=== PATIENT | male | born 1950 | race Caucasian/White ===

== ENCOUNTER 2017-04-25 18:25 | Inpatient (IN) | payer MEDICARE ==
[~2017-04-25] VITALS: Ht 167.6 cm; Wt 80.5 kg
[~2017-04-25 18:25] MED LIST: OXYC-360 PO
[2017-04-25 18:27] VITALS: BP 149/90; PULSE 76; RESP 24; TEMP 99.5; O2SAT 92
[2017-04-25 18:57] VITALS: BP 147/75; PULSE 76; RESP 19; O2SAT 97
[2017-04-25] MEDS ORDERED: SODIUM CHLOR 0.9% 1000 ML INJ 1,000 ML IV ONE (19:04)
[2017-04-25 19:09] VITALS: BP 152/67; PULSE 55; RESP 18; O2SAT 96
[2017-04-25] MEDS ORDERED: SODIUM CHLORIDE 0.9% FLUSH 10 ML FLUSH IVF PRN (19:15)
--- NOTE | 2017-04-25 19:47 | PD ---
Data Data Last Documented VS Vital Signs Date Time Temp Pulse Resp B/P (MAP) Pulse Ox O2 Delivery O2 Flow Rate FiO2 04/25/17 19:09 55 18 152/67 (95) 96 Nasal Cannula 2.00 04/25/17 18:27 99.5 Orders Orders Electrocardiogram (04/25/17 19:04) Complete Blood Count With Diff (04/25/17 19:04) Comprehensive Metabolic Panel (04/25/17 19:04) Magnesium (Mg) (04/25/17 19:04) B-Type Natriuretic Peptide (04/25/17 19:04) Ckmb (Isoenzyme) Profile (04/25/17 19:04) Troponin I (04/25/17 19:04) Act Partial Throm Time (Ptt) (04/25/17 19:04) Prothrombin Time / Inr (Pt) (04/25/17 19:04) Urinalysis - C+S If Indicated (04/25/17 19:04) Chest, Single Ap (04/25/17 19:04) Ct Brain W/O Iv Contrast(Rout) (04/25/17 19:04) Ecg Monitoring (04/25/17 19:04) Iv Access Insert/Monitor (04/25/17 19:04) Oximetry (04/25/17 19:04) Sodium Chloride 0.9% Flush (Ns Flush) (04/25/17 19:15) Sodium Chlor 0.9% 1000 Ml Inj (Ns 1000 M (04/25/17 19:04) Blood Culture (04/25/17 19:04) Lactic Acid (04/25/17 19:04) Mri Brain W/O Contrast (04/25/17 ) Mra Carotids W/O Contrast (04/25/17 ) CKMB (04/25/17 19:35) CKMB% (04/25/17 19:35) Ammonia (04/25/17 21:48) Enoxaparin Inj (Lovenox Inj) (04/25/17 22:30) Admit Order (Ed Use Only) (04/25/17 22:31) Labs Laboratory Tests Test 04/25/17 19:35 04/25/17 21:50 White Blood Count 13.2 TH/MM3 Red Blood Count 4.91 MIL/MM3 Hemoglobin 15.0 GM/DL Hematocrit 45.9 % Mean Corpuscular Volume 93.6 FL Mean Corpuscular Hemoglobin 30.6 PG Mean Corpuscular Hemoglobin Concent 32.7 % Red Cell Distribution Width 17.0 % Platelet Count 256 TH/MM3 Mean Platelet Volume 7.7 FL Neutrophils (%) (Auto) 65.2 % Lymphocytes (%) (Auto) 16.2 % Monocytes (%) (Auto) 15.4 % Eosinophils (%) (Auto) 2.1 % Basophils (%) (Auto) 1.1 % Neutrophils # (Auto) 8.6 TH/MM3 Lymphocytes # (Auto) 2.1 TH/MM3 Monocytes # (Auto) 2.0 TH/MM3 Eosinophils # (Auto) 0.3 TH/MM3 Basophils # (Auto) 0.1 TH/MM3 CBC Comment DIFF FINAL Differential Comment Prothrombin Time 10.7 SEC Prothromb Time International Ratio 1.0 RATIO Activated Partial Thromboplast Time 29.4 SEC Blood Urea Nitrogen 61 MG/DL Creatinine 3.59 MG/DL Random Glucose 83 MG/DL Total Protein 7.6 GM/DL Albumin 3.4 GM/DL Calcium Level 8.3 MG/DL Magnesium Level 2.9 MG/DL Alkaline Phosphatase 93 U/L Aspartate Amino Transf (AST/SGOT) 84 U/L Alanine Aminotransferase (ALT/SGPT) 36 U/L Total Bilirubin 0.6 MG/DL Sodium Level 136 MEQ/L Potassium Level 4.5 MEQ/L Chloride Level 103 MEQ/L Carbon Dioxide Level 25.0 MEQ/L Anion Gap 8 MEQ/L Estimat Glomerular Filtration Rate 17 ML/MIN Lactic Acid Level 1.3 mmol/L Total Creatine Kinase 2346 U/L Creatine Kinase MB 70.8 NG/ML Creatine Kinase MB % 3.0 % Troponin I 6.63 NG/ML B-Type Natriuretic Peptide 178 PG/ML Ammonia 54 MCMOL/L [facility] Supervised Visit with JANE: Yes Narrative Course Last [address] 04/25/171903 Signed Impressions: Service Date/Time: April 20:43 - CONCLUSION: No acute intracranial abnormality. Mild sinus disease. Cisco Kimball MD Chest X-Ray 04/25/171903 Signed Impressions: Service Date/Time: April 20:16 - CONCLUSION: No evidence of acute cardiopulmonary disease. Cisco Kimball MD Neck Magnetic Resonance Angiography 04/25/17 0000 Signed Impressions: Service Date/Time: April 22:02 - CONCLUSION: 1. Very limited noncontrast exam of the cervical vessels with step off artifact. 2. The arch vessels are incompletely evaluated. Possible ostial stenosis of the right internal with a mild long segment stenosis of the left internal. 3. Patient is left vertebral dominant. Proximal vertebral arteries are not evaluated. Oj Cortes MD Brain MRI 04/25/17 0000 Signed Impressions: Service Date/Time: April 22:02 - CONCLUSION: 1. No bleed, infarct or other acute intracranial abnormality. 2. Very mild chronic white matter changes. 3. Disconjugate gaze. Cisco Kimball MD I, Dr. Low, have reviewed the advance practice practitioner's documentation and am in agreement, met with the patient face to face, made the diagnosis, and the medical decision making was done by me. *My assessment and Findings: Patient seen and examined by me in addition to Keny Feliciano PA-C, this is a 66-year-old male with a history of chronic kidney disease presents emergency department for evaluation of altered mental status, tremors particularly in the right upper and right lower extremity. Patient is also having some slurred speech. Family is concerned is been having stroke. Symptoms for 48 hours prior to presentation. Initial workup including CAT scan of the head was negative. The patient does have acute kidney injury with uremia and elevated troponin no chest pain his EKG was reviewed by me and is nonischemic.. The patient was discussed with Dr. Lopez by Dia Feliciano who thinks that the symptoms likely are more from uremic encephalopathy. MRI is ordered and pending. Patient was discussed with Dr. Stewart for admission. We discussed with Dr. Lopez, possible indications for heparinization but he would like to get MRI first. Heparinization was discussed with Dr. Stewart who would like to give low-dose Lovenox instead. This is deferred to him. Diagnosis Primary Impression: Troponin level elevated Additional Impressions: Tremor of hands and face Hypertension Qualified Codes: I10 - Essential (primary) hypertension Hyperlipidemia Qualified Codes: E78.00 - Pure hypercholesterolemia, unspecified Acute kidney injury superimposed on CKD Admitting Information Admitting Physician Requests: Admit Condition: Luis Ashby MD Apr 25, 2017 19:47
[2017-04-25 19:55] LABS: AUTOMATED NEUTROPHIL # 8.6 TH/MM3 (1.8-7.7); BASOPHIL # 0.1 TH/MM3 (0-0.2); BASOPHIL % 1.1 % (0.0-2.0); EOSINOPHIL # 0.3 TH/MM3 (0-0.4); EOSINOPHIL % 2.1 % (0.0-4.0); HEMATOCRIT 45.9 % (39.0-51.0); HEMO FLAGS DIFF FINAL; LYMPH % 16.2 % (9.0-44.0); LYMPHOCYTE # 2.1 TH/MM3 (1.0-4.8); MEAN CELL VOLUME 93.6 FL (80.0-100.0); MEAN CORPUSCULAR HEMOGLOBIN 30.6 PG (27.0-34.0); MEAN CORPUSCULAR HGB CONC 32.7 % (32.0-36.0); MONO % 15.4 % (0.0-8.0); NEUT % 65.2 % (16.0-70.0); PLATELET COUNT 256 TH/MM3 (150-450); RED BLOOD COUNT 4.91 MIL/MM3 (4.50-5.90); WHITE BLOOD COUNT 13.2 TH/MM3 (4.0-11.0)
[2017-04-25 20:07] LABS: APTT (PATIENT) 29.4 SEC (24.3-30.1); PROTHROMBIN TIME - PATIENT 10.7 SEC (9.8-11.6)
--- NOTE | 2017-04-25 20:07 | PD ---
HPI Chief Complaint: Neuro Symptoms/ Deficits Time Seen by Provider: 19:10 Travel History International Travel<30 days: No Contact w/Intl Traveler<30days: No Traveled to known affect area: No History of Present Illness HPI 66 YO M with PMH of HTN, hypertriglyceridemia, GERD, hep C, chronic back pain presents to the ED for evaluation of 2 day history of tremor, malaise. The patient is somnolent but he arouses easily and answers questions appropriately. He is oriented to person, place, time, situation. He reports feeling tired and weak but denies headache, dizziness, chest pain, palpitations, shortness of breath, abdominal pain, nausea, vomiting. Patients family is at bedside and helps to provide the history. They state that the patient has been tremulous for approximately 48 hours. This originated in the right arm and then progressed to all the extremities bilaterally. Patient's daughter states that he was tremulous but otherwise fine around lunchtime today. Patients family member reports that the patient has been drowsy for approximately 3 hours. Last pain medications taken around 4pm. Patient is followed by Dr. Schrader. [facility] Past Medical History High Cholesterol: Yes GERD: Yes Hepatitis: Yes (HEP C) Hypertension: Yes Triglycerides - High: Yes Tetanus Vaccination: Unknown Influenza Vaccination: No Past Surgical History Tonsillectomy: Yes Social History Alcohol Use: No Tobacco Use: Yes (1/2 PPD) Substance Use: No Allergies-Medications (Allergen,Severity, Reaction): Coded Allergies: No Known Allergies (Unverified , 07/15/13) Reported Meds & Prescriptions Reported Meds & Active Scripts Active Reported Ranitidine (Ranitidine HCl) 150 Mg Tab 150 Mg PO BID Gemfibrozil 600 Mg Tab 600 Mg PO BIDAC Take 30 minutes prior to breakfast and dinner. Alendronate (Alendronate Sodium) 35 Mg Tab 35 Mg PO Q7D Vitamin B12 (Cyanocobalamin) 500 Mcg Tab 500 Mcg PO DAILY [magnesium + zinc] 1 Tab PO BID Atorvastatin (Atorvastatin Calcium) 40 Mg Tab 40 Mg PO HS [fish oil] 4,800 Mg PO DAILY Vitamin D3 (Cholecalciferol) 400 Unit Tab 200 Units PO DAILY Morphine Liq (Morphine Sulfate) 10 Mg/5 Ml Liq 0.1 Mg PO DAILY Enalapril (Enalapril Maleate) 20 Mg Tab 20 Mg PO DAILY Hydrochlorothiazide 25 Mg Tab 25 Mg PO DAILY Aspirin 81 Mg Chew 81 Mg CHEW DAILY Allopurinol 300 Mg Tab 300 Mg PO DAILY Metoprolol Tartrate 50 Mg Tab 50 Mg PO BID Review of Systems Except as stated in HPI: all other systems reviewed are Neg Physical Exam Narrative GENERAL: Well-nourished, well-developed white male, somnolent, arouses easily. SKIN: Focused skin assessment warm/dry. HEAD: Normocephalic. EYES: No scleral icterus. No injection or drainage. Mucous-like discharge from the bilateral eyes. NECK: Supple, trachea midline. No JVD or lymphadenopathy. CARDIOVASCULAR: Regular rate and rhythm without murmurs, gallops, or rubs. RESPIRATORY: Breath sounds clear and equal bilaterally. No accessory muscle use. GASTROINTESTINAL: Abdomen soft, non-tender, nondistended. Active bowel sounds. MUSCULOSKELETAL: No cyanosis, or edema. Chronic skin changes in the bilateral lower extremities. The patient has 2 skin tears on the anterior aspect of the left rider. There is 1+ edema bilaterally but no warmth or drainage is noted. NEUROLOGICAL: Awake and alert. Cranial nerves II through XII intact. Motor and sensory grossly within normal limits. Equal triple valve mechanic strength bilaterally. 4/5 5 muscle strength in all muscle groups of the lower extremities bilaterally. Normal speech. BACK: Nontender without obvious deformity. No CVA tenderness. Data Data Last Documented VS Vital Signs Date Time Temp Pulse Resp B/P (MAP) Pulse Ox O2 Delivery O2 Flow Rate FiO2 04/25/17 19:09 55 18 152/67 (95) 96 Nasal Cannula 2.00 04/25/17 18:27 99.5 Orders Orders Electrocardiogram (04/25/17 19:04) Complete Blood Count With Diff (04/25/17 19:04) Comprehensive Metabolic Panel (04/25/17 19:04) Magnesium (Mg) (04/25/17 19:04) B-Type Natriuretic Peptide (04/25/17 19:04) Ckmb (Isoenzyme) Profile (04/25/17 19:04) Troponin I (04/25/17 19:04) Act Partial Throm Time (Ptt) (04/25/17 19:04) Prothrombin Time / Inr (Pt) (04/25/17 19:04) Urinalysis - C+S If Indicated (04/25/17 19:04) Chest, Single Ap (04/25/17 19:04) Ct Brain W/O Iv Contrast(Rout) (04/25/17 19:04) Ecg Monitoring (04/25/17 19:04) Iv Access Insert/Monitor (04/25/17 19:04) Oximetry (04/25/17 19:04) Sodium Chloride 0.9% Flush (Ns Flush) (04/25/17 19:15) Sodium Chlor 0.9% 1000 Ml Inj (Ns 1000 M (04/25/17 19:04) Blood Culture (04/25/17 19:04) Lactic Acid (04/25/17 19:04) Mri Brain W/O Contrast (04/25/17 ) Mra Carotids W/O Contrast (04/25/17 ) CKMB (04/25/17 19:35) CKMB% (04/25/17 19:35) Ammonia (04/25/17 21:48) Enoxaparin Inj (Lovenox Inj) (04/25/17 22:30) Admit Order (Ed Use Only) (04/25/17 22:31) Labs Laboratory Tests Test 04/25/17 19:35 04/25/17 21:50 White Blood Count 13.2 TH/MM3 Red Blood Count 4.91 MIL/MM3 Hemoglobin 15.0 GM/DL Hematocrit 45.9 % Mean Corpuscular Volume 93.6 FL Mean Corpuscular Hemoglobin 30.6 PG Mean Corpuscular Hemoglobin Concent 32.7 % Red Cell Distribution Width 17.0 % Platelet Count 256 TH/MM3 Mean Platelet Volume 7.7 FL Neutrophils (%) (Auto) 65.2 % Lymphocytes (%) (Auto) 16.2 % Monocytes (%) (Auto) 15.4 % Eosinophils (%) (Auto) 2.1 % Basophils (%) (Auto) 1.1 % Neutrophils # (Auto) 8.6 TH/MM3 Lymphocytes # (Auto) 2.1 TH/MM3 Monocytes # (Auto) 2.0 TH/MM3 Eosinophils # (Auto) 0.3 TH/MM3 Basophils # (Auto) 0.1 TH/MM3 CBC Comment DIFF FINAL Differential Comment Prothrombin Time 10.7 SEC Prothromb Time International Ratio 1.0 RATIO Activated Partial Thromboplast Time 29.4 SEC Blood Urea Nitrogen 61 MG/DL Creatinine 3.59 MG/DL Random Glucose 83 MG/DL Total Protein 7.6 GM/DL Albumin 3.4 GM/DL Calcium Level 8.3 MG/DL Magnesium Level 2.9 MG/DL Alkaline Phosphatase 93 U/L Aspartate Amino Transf (AST/SGOT) 84 U/L Alanine Aminotransferase (ALT/SGPT) 36 U/L Total Bilirubin 0.6 MG/DL Sodium Level 136 MEQ/L Potassium Level 4.5 MEQ/L Chloride Level 103 MEQ/L Carbon Dioxide Level 25.0 MEQ/L Anion Gap 8 MEQ/L Estimat Glomerular Filtration Rate 17 ML/MIN Lactic Acid Level 1.3 mmol/L Total Creatine Kinase 2346 U/L Creatine Kinase MB 70.8 NG/ML Creatine Kinase MB % 3.0 % Troponin I 6.63 NG/ML B-Type Natriuretic Peptide 178 PG/ML Ammonia 54 MCMOL/L [facility] Medical Decision Making Medical Screen Exam Complete: Yes Emergency Medical Condition: Yes Differential Diagnosis CVA versus PNA versus cellulitis versus UTI versus metabolic derangement versus Narrative Course 66 YO M with PMH of HTN, hypertriglyceridemia, GERD, hep C, chronic back pain presents to the ED for evaluation of 2 day history of tremor, malaise. He reports feeling tired and weak but denies headache, dizziness, chest pain, palpitations, shortness of breath, abdominal pain, nausea, vomiting. Patients family is at bedside and helps to provide the history. They state that the patient has been tremulous for approximately 48 hours. This originated in the right arm and then progressed to all the extremities bilaterally. Patient's daughter states that he was tremulous but otherwise fine around lunchtime today. She reports that the patient has been drowsy for approximately 3 hours. Last pain medications taken around 4pm. Patient is followed by Dr. Schrader. Temp 99.5, O2 saturations 96-97% on 2L NC on presentation. The patient is somnolent but he arouses easily and answers questions appropriately. He is oriented to person, place, time, situation. No focal neuro deficits. No appreciable M/R/G. Abdomen protuberant, soft, nontender. He does have chronic skin changes in the bilateral lower extremities as well as 2 large skin tears on the anterior aspect the left leg. No signs of infection. CBC: WBC 13.2. Hemoglobin 15.0. Coags: INR 1.0 CBC: BUN 61, creatinine 3.59. Calcium 8.3. Magnesium 2.9 Lactic acid 1.3. EKG: No acute ST changes noted. Troponin 6.63. CK 2346 CXR: No evidence of cardiopulmonary disease. I discussed the case with Dr. Low. Some concern for stroke so we will go ahead with imaging sans contrast, pending at this time. Consult place with Dr. Shea. I spoke with Dr. Stewart who agrees to accept the patient to the medicine service. The EKG is unimpressive for ACS, cardiac enzymes likely elevated secondary to acute renal failure. Dr. Stewart will monitor and consult cardiology as needed. Please see medicine notes for disposition. Dia Feliciano Apr 25, 2017 20:07
[2017-04-25] MEDS ORDERED: fish oil PO (20:26)
[2017-04-25] MEDS ORDERED: HYDR25TA5 PO (20:26)
[2017-04-25] MEDS ORDERED: ENAL20TA PO (20:26)
[2017-04-25] MEDS ORDERED: ASPI81CH CHEW (20:26)
[2017-04-25] MEDS ORDERED: METO50TA PO (20:26)
[2017-04-25] MEDS ORDERED: MORP1SOL3 PO (20:26)
[2017-04-25] MEDS ORDERED: ALLO300T2 PO (20:26)
[2017-04-25] MEDS ORDERED: VITD400 PO (20:26)
[2017-04-25 20:27] LABS: ANION GAP 8 MEQ/L (5-15); AST (GOT) 84 U/L (15-37); BLOOD UREA NITROGEN 61 MG/DL (7-18); CHLORIDE 103 MEQ/L (98-107); GLOMERULAR FILTRATION RATE 17 ML/MIN (>89); MAGNESIUM 2.9 MG/DL (1.5-2.5); POTASSIUM 4.5 MEQ/L (3.5-5.1); SODIUM (NA) 136 MEQ/L (136-145)
[2017-04-25] MEDS ORDERED: RANI150T PO (20:29)
[2017-04-25] MEDS ORDERED: ZINC PO (20:29)
[2017-04-25] MEDS ORDERED: GEMF600T PO (20:29)
[2017-04-25] MEDS ORDERED: ATOR40TA16 PO (20:29)
[2017-04-25] MEDS ORDERED: VITA500T49 PO (20:29)
[2017-04-25] MEDS ORDERED: MAGNESIUM PO (20:29)
[2017-04-25] MEDS ORDERED: ALEN35TA24 PO (20:29)
--- NOTE | 2017-04-25 20:42 | RADRPT ---
EXAM DATE/TIME: 04/25/2017 20:16 [facility] COMPARISON: No previous studies available for comparison. INDICATIONS : General weakness. MEDICAL HISTORY : Hypertension. SURGICAL HISTORY : None. ENCOUNTER: Initial ACUITY: 3 days PAIN SCORE: 0/10 LOCATION: Bilateral chest FINDINGS: A single view of the chest demonstrates the lungs to be symmetrically aerated without evidence of mas s, infiltrate or effusion. The cardiomediastinal contours are unremarkable. Osseous structures are intact. CONCLUSION: No evidence of acute cardiopulmonary disease. Cisco Kimball MD on April 25, 2017 at 20:40 Board Certified Radiologist. This report was verified electronically.
[2017-04-25 20:43] LABS: ALKALINE PHOSPHATASE 93 U/L (45-117); ALT (GPT) 36 U/L (12-78); CREATINE KINASE 2346 U/L (39-308); TOTAL BILIRUBIN ADULT 0.6 MG/DL (0.2-1.0)
[2017-04-25 20:57] LABS: CKMB 70.8 NG/ML (0.5-3.6)
--- NOTE | 2017-04-25 21:25 | RADRPT ---
EXAM DATE/TIME: 04/25/2017 20:43 [facility] COMPARISON: No previous studies available for comparison. INDICATIONS : Tremors, dizziness. RADIATION DOSE: 56.35 CTDIvol (mGy) MEDICAL HISTORY : Hypertension. Hepatitis C. SURGICAL HISTORY : None. ENCOUNTER: Initial ACUITY: 1 day PAIN SCALE: 0/10 LOCATION: cranial TECHNIQUE: Multiple contiguous axial images were obtained of the head. Using automated exposure control and adj ustment of the mA and/or kV according to patient size, radiation dose was kept as low as reasonably a chievable to obtain optimal diagnostic quality images. DICOM format image data is available electro nically for review and comparison. FINDINGS: CEREBRUM: The ventricles are normal for age. No evidence of midline shift, mass lesion, hemorrhage or acute in farction. No extra-axial fluid collections are seen. POSTERIOR FOSSA: The cerebellum and brainstem are intact. The 4th ventricle is midline. The cerebellopontine angle i s unremarkable. EXTRACRANIAL: Mild mucoperiosteal thickening of the visualized ethmoid air cells. SKULL: The calvaria is intact. No evidence of skull fracture. CONCLUSION: No acute intracranial abnormality. Mild sinus disease. Cisco Kimball MD on April 25, 2017 at 21:23 Board Certified Radiologist. This report was verified electronically.
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
[2017-04-25] MEDS ORDERED: ENOXAPARIN SODIUM 40 MG/0.4 ML SYRINGE SQ ONE (22:30)
--- NOTE | 2017-04-25 22:31 | RADRPT ---
EXAM DATE/TIME: 04/25/2017 22:02 [facility] COMPARISON: CT BRAIN W/O CONTRAST, April 25, 2017, 20:43. INDICATIONS : CVA. MEDICAL HISTORY : Hypertension. Gastroesophageal reflux disease. Renal disease. SURGICAL HISTORY : Tonsillectomy. Strabismus surgery. ENCOUNTER: Subsequent ACUITY: 1 day PAIN SCORE: 3/10 LOCATION: cranial TECHNIQUE: Multiplanar, multisequence MRI of the brain was performed without contrast. FINDINGS: CEREBRUM: The ventricles are normal for age. No evidence of midline shift, mass lesion, hemorrhage or acute in farction. No extraaxial fluid collections are seen. The pituitary gland and suprasellar cistern are normal in configuration. WHITE MATTER: Mild, symmetric sclerae no abnormality seen in the periventricular white matter of both 3 bral hemisp heres. POSTERIOR FOSSA: The cerebellum and brainstem are intact. The 4th ventricle is midline. The cerebellopontine angle is unremarkable. The cerebellar tonsils are normal in position. DIFFUSION IMAGING: No focal areas of restricted diffusion are seen. No evidence of acute infarction. EXTRACRANIAL: Disconjugate gaze noted with both globes looking laterally. [facility]. CONCLUSION: 1. No bleed, infarct or other acute intracranial abnormality. 2. Very mild chronic white matter changes. 3. Disconjugate gaze. Cisco Kimball MD on April 25, 2017 at 22:28 Board Certified Radiologist. This report was verified electronically.
--- NOTE | 2017-04-25 23:16 | RADRPT ---
EXAM DATE/TIME: 04/25/2017 22:02 [facility] COMPARISON: No previous studies available for comparison. INDICATIONS : Stroke. MEDICAL HISTORY : Hypertension. Gastroesophageal reflux disease. Renal disease. SURGICAL HISTORY : Tonsillectomy. Strabismus surgery. ENCOUNTER: Subsequent ACUITY: 1 day PAIN SCORE: 3/10 LOCATION: cranial Percent stenosis is calculated using the diameter of the stenotic region over the diameter of the nor mal distal internal carotid artery. TECHNIQUE: 3D time of flight MRA of the extracranial circulation was performed using a neurovascular coil. Post processing was performed including rotating subvolume maximum intensity projections of each carotid artery, rotating full-volume maximum intensity projections of both carotid arteries, sagittal and cor onal sliding thin-slab reformations of each carotid artery, and left oblique sliding thin slab reform ation through the aortic arch to include the origin of the arch branch vessels. FINDINGS: AORTIC ARCH: Poorly visualized. RIGHT CAROTID: Limited anatomic detail with possible high grade stenosis at the ostium of the internal. However, thi s may be artifactual as there is evidence of step off artifact. LEFT CAROTID: Limited anatomic detail. Mild stenosis in the proximal internal with again, step off artifact VERTEBRALS: Limited anatomic detail with step off artifact. Patient is to be left vertebral dominant. Proximal ve rtebral arteries are not evaluated. CONCLUSION: 1. Very limited noncontrast exam of the cervical vessels with step off artifact. 2. The arch vessels are incompletely evaluated. Possible ostial stenosis of the right internal with a mild long segment stenosis of the left internal. 3. Patient is left vertebral dominant. Proximal vertebral arteries are not evaluated. Oj Cortes MD on April 25, 2017 at 23:11 Board Certified Radiologist. This report was verified electronically.
[2017-04-26] VITALS (24 sets, daily range): BP systolic 122–162; BP diastolic 59–86; PULSE 48–75; RESP 16–20; TEMP 98.3–99.4; O2SAT 92–100
[2017-04-26] MEDS ORDERED: SODIUM CHLOR 0.9% 1000 ML INJ 1,000 ML IV SCH (05:30)
[2017-04-26 07:59] LABS: AUTOMATED NEUTROPHIL # 7.4 TH/MM3 (1.8-7.7); BASOPHIL # 0.1 TH/MM3 (0-0.2); BASOPHIL % 1.1 % (0.0-2.0); EOSINOPHIL # 0.4 TH/MM3 (0-0.4); EOSINOPHIL % 3.3 % (0.0-4.0); HEMO FLAGS DIFF FINAL; LYMPH % 16.1 % (9.0-44.0); LYMPHOCYTE # 1.8 TH/MM3 (1.0-4.8); MEAN CELL VOLUME 93.7 FL (80.0-100.0); MEAN CORPUSCULAR HEMOGLOBIN 30.7 PG (27.0-34.0); MEAN CORPUSCULAR HGB CONC 32.7 % (32.0-36.0); MONO % 13.2 % (0.0-8.0); NEUT % 66.3 % (16.0-70.0); PLATELET COUNT 249 TH/MM3 (150-450); RED CELL DISTRIBUTION WIDTH 16.7 % (11.6-17.2); WHITE BLOOD COUNT 11.1 TH/MM3 (4.0-11.0)
[2017-04-26] MEDS: ASPIRIN 325 MG TAB PO SCH (08:16)
[2017-04-26] MEDS: FAMOTIDINE 20 MG TAB PO SCH ×2 (08:16→21:27)
[2017-04-26] MEDS: METOPROLOL TARTRATE 50 MG TAB PO SCH ×2 (08:17→21:27)
[2017-04-26] MEDS: CYANOCOBALAMIN 100 MCG TAB PO SCH (08:20)
--- NOTE | 2017-04-26 08:42 | PD.CONS ---
HPI Service CV Consult Requested By Reason for Consult elevated troponin Primary Care Physician Carlo Schrader MD History of Present Illness Here with HTN, hyperlipidemia admitted for tremor, weakness and with a h/o a fall 2 days ago. The patient is somnolent but he arouses easily and answers questions appropriately. He denies chest pain, palpitations or shortness of breath. Three hours prior to arrival in the ER he was drowsy (Raghav Ardon) Review of Systems Consitutional: DENIES: Fatigue, Fever, Chills, Weight gain, Weight loss Eyes: DENIES: Amaurosis Fugax, Change in vision HEENT: DENIES: Lightheadedness, Change in hearing Respiratory: DENIES: See HPI, Cough, Snoring, Shortness of breath, Wheezing, Sputum production Cardiovascular: COMPLAINS OF: See HPI Gastrointestinal: DENIES: Nausea, Vomiting, Change in bowel habits, Reflux, Bloody stools, Melena Genitourinary: DENIES: Urinary incontinence, Difficulty voiding Integumentary: DENIES: Rash Neurologic: DENIES: Tingling or numbness, Memory problems, Poor Balance, Stroke symptoms Musculoskeletal: DENIES: Joint pain, Muscle pain, Limited range of motion, Back pain Psychiatric: DENIES: Anxiety, Depression, Sleep disturbances Hematologic: DENIES: Bruising tendencies, Bleeding tendencies Endocrine: DENIES: Weight gain, Weight loss, Thyroid disease (Raghav Ardon ) Past Family Social History Allergies: Coded Allergies: No Known Allergies (Unverified , 07/15/13) Past Medical History prior stroke BPH CKD3 GERD Hep C Peripheral neuropathy Nicotine dependence Osteoporosis Obesity venous stasis ulcers Past Surgical History Appendectomy Renal biopsy LESI Rhizotomy T&A Reported Medications Reported Meds & Active Scripts Active Reported Ranitidine (Ranitidine HCl) 150 Mg Tab 150 Mg PO BID Gemfibrozil 600 Mg Tab 600 Mg PO BIDAC Take 30 minutes prior to breakfast and dinner. Alendronate (Alendronate Sodium) 35 Mg Tab 35 Mg PO Q7D Vitamin B12 (Cyanocobalamin) 500 Mcg Tab 500 Mcg PO DAILY [magnesium + zinc] 1 Tab PO BID Atorvastatin (Atorvastatin Calcium) 40 Mg Tab 40 Mg PO HS [fish oil] 4,800 Mg PO DAILY Vitamin D3 (Cholecalciferol) 400 Unit Tab 200 Units PO DAILY Morphine Liq (Morphine Sulfate) 10 Mg/5 Ml Liq 0.1 Mg PO DAILY Enalapril (Enalapril Maleate) 20 Mg Tab 20 Mg PO DAILY Hydrochlorothiazide 25 Mg Tab 25 Mg PO DAILY Aspirin 81 Mg Chew 81 Mg CHEW DAILY Allopurinol 300 Mg Tab 300 Mg PO DAILY Metoprolol Tartrate 50 Mg Tab 50 Mg PO BID Active Ordered Medications Current Medications Medications (Trade) Dose Ordered Sig/Bhargavi Route Start Time Stop Time Status Last Admin (NS Flush) 2 ml UNSCH PRN IVF 04/25/17 19:15 Sodium Chloride 1,000 ml @ 100 mls/hr Q10H IV 04/26/17 05:30 04/26/17 08:19 (Morphine Inj) 4 mg Q3H PRN IV PUSH 04/26/17 05:30 (Aspirin) 325 mg DAILY PO 04/26/17 09:00 04/26/17 08:16 (Lipitor) 40 mg HS PO 04/26/17 21:00 (Vitamin B12) 500 mcg DAILY PO 04/26/17 09:00 (Lopressor) 25 mg BID PO 04/26/17 09:00 04/26/17 08:17 (Pepcid) 20 mg BID PO 04/26/17 09:00 04/26/17 08:16 Family History noncontributory Social History 3/4 ppd for appx 45 yrs No regular EtOH use (Raghav Ardon) Physical Exam Vital Signs Vital Signs Date Time Temp Pulse Resp B/P (MAP) Pulse Ox O2 Delivery O2 Flow Rate FiO2 04/26/17 05:12 98.6 69 16 122/59 (80) 93 04/26/17 04:00 66 04/26/17 00:51 99.4 66 16 136/66 (89) 94 04/25/17 19:09 55 18 152/67 (95) 96 Nasal Cannula 2.00 04/25/17 18:57 76 19 147/75 (99) 97 Nasal Cannula 2.00 04/25/17 18:52 Nasal Cannula 04/25/17 18:27 99.5 76 24 149/90 (109) 92 Room Air Physical Exam GENERAL: Well-nourished, well-developed patient in no apparent distress. NECK: No JVD. No carotid bruit. CARDIOVASCULAR: Regular rate and rhythm. S1/S2 no murmur, rub, or gallop. RESPIRATORY: No accessory muscle use. Clear to auscultation. Breath sounds equal bilaterally. GASTROINTESTINAL: Abdomen soft, non-tender, nondistended. MUSCULOSKELETAL: Extremities without clubbing, cyanosis, or edema. Laboratory Laboratory Tests Test 04/25/17 19:35 04/25/17 21:50 04/26/17 01:40 04/26/17 07:17 White Blood Count 13.2 11.1 Red Blood Count 4.91 4.70 Hemoglobin 15.0 14.4 Hematocrit 45.9 44.0 Mean Corpuscular Volume 93.6 93.7 Mean Corpuscular Hemoglobin 30.6 30.7 Mean Corpuscular Hemoglobin Concent 32.7 32.7 Red Cell Distribution Width 17.0 16.7 Platelet Count 256 249 Mean Platelet Volume 7.7 8.2 Neutrophils (%) (Auto) 65.2 66.3 Lymphocytes (%) (Auto) 16.2 16.1 Monocytes (%) (Auto) 15.4 13.2 Eosinophils (%) (Auto) 2.1 3.3 Basophils (%) (Auto) 1.1 1.1 Neutrophils # (Auto) 8.6 7.4 Lymphocytes # (Auto) 2.1 1.8 Monocytes # (Auto) 2.0 1.5 Eosinophils # (Auto) 0.3 0.4 Basophils # (Auto) 0.1 0.1 CBC Comment DIFF FINAL DIFF FINAL Differential Comment Prothrombin Time 10.7 Prothromb Time International Ratio 1.0 Activated Partial Thromboplast Time 29.4 Blood Urea Nitrogen 61 Creatinine 3.59 Random Glucose 83 Total Protein 7.6 Albumin 3.4 Calcium Level 8.3 Magnesium Level 2.9 Alkaline Phosphatase 93 Aspartate Amino Transf (AST/SGOT) 84 Alanine Aminotransferase (ALT/SGPT) 36 Total Bilirubin 0.6 Sodium Level 136 Potassium Level 4.5 Chloride Level 103 Carbon Dioxide Level 25.0 Anion Gap 8 Estimat Glomerular Filtration Rate 17 Lactic Acid Level 1.3 Total Creatine Kinase 2346 Creatine Kinase MB 70.8 Creatine Kinase MB % 3.0 Troponin I 6.63 5.95 5.83 B-Type Natriuretic Peptide 178 Ammonia 54 53 Date/Time Source Procedure Growth Status 04/25/17 19:40 Blood Line Aerobic Blood Culture Pending Received 04/25/17 19:40 Blood Line Anaerobic Blood Culture Pending Received (Raghav Ardon) Result Diagram: 04/26/17 0717 04/25/17 1935 Assessment and Plan Problem List: (1) Troponin level elevated ICD Codes: R74.8 - Abnormal levels of other serum enzymes Status: Acute (2) Hypertension ICD Codes: I10 - Essential (primary) hypertension Status: Chronic (3) Hyperlipidemia ICD Codes: E78.5 - Hyperlipidemia, unspecified Status: Chronic Assessment and Plan Elevated troponin - although significantly high it still could be demand mediated, With his renal dysfunction we will hydrate and consider further cardiac diagnostic after the weekend HTN - well controlled (Raghav Ardon) Assessment and Plan NSTEMI - unclear etiology. wait for renal recovery, then likely [facility]. 2d echo med therapy (Marvin Heaton MD) Problem Qualifiers (1) Hypertension: Qualified Codes: I10 - Essential (primary) hypertension (2) Hyperlipidemia: Qualified Codes: E78.00 - Pure hypercholesterolemia, unspecified Raghav Ardon Apr 26, 2017 08:42 Marvin Heaton MD Apr 26, 2017 12:49
[2017-04-26 08:47] LABS: ALKALINE PHOSPHATASE 81 U/L (45-117); ALT (GPT) 30 U/L (12-78); ANION GAP 8 MEQ/L (5-15); AST (GOT) 69 U/L (15-37); BLOOD UREA NITROGEN 61 MG/DL (7-18); CHLORIDE 107 MEQ/L (98-107); GLOMERULAR FILTRATION RATE 26 ML/MIN (>89); POTASSIUM 4.3 MEQ/L (3.5-5.1); SODIUM (NA) 138 MEQ/L (136-145); TOTAL BILIRUBIN ADULT 0.7 MG/DL (0.2-1.0)
[2017-04-26] MEDS ORDERED: METOPROLOL TARTRATE 50 MG TAB PO SCH (09:00)
[2017-04-26] MEDS ORDERED: NON-FORMULARY DRUG (Ranitidine 150 MG) PO SCH (09:00)
[2017-04-26 09:31] LABS: BLOOD GAS BASE EXCESS -1.6 mmol/L (-2-2); BLOOD GAS CARBOXYHEMOGLOBIN 4.4 % (0-4); BLOOD GAS HCO3 24 mmol/L (22-26); BLOOD GAS METHEMOGLOBIN 1.9 % (0-2); BLOOD GAS O2 HGB SATURATION 85 % (90-100); BLOOD GAS OXYGEN CONTENT 17.9 Vol % (12.0-20.0); BLOOD GAS PCO2 49 mmHg (38-42); BLOOD GAS PO2 61 mmHg (61-120); BLOOD GAS TOTAL HGB 15.1 G/DL (12.0-16.0); TEMP CORR TO 98.6
[2017-04-26 09:33] LABS: CRITICAL VALUE YES; DRAW SITE RT RADIAL; FIO2 21 %
[2017-04-26 09:34] LABS: NUMBER OF ARTERIAL PUNCTURES 1; STAT YES; ULNAR PULSE PRESENT
[2017-04-26 10:52] LABS: CKMB 34.8 NG/ML (0.5-3.6)
--- NOTE | 2017-04-26 11:10 | RADRPT ---
EXAM DATE/TIME: 04/26/2017 08:53 [facility] COMPARISON: No previous studies available for comparison. INDICATIONS : Cerebrovascular accident. MEDICAL HISTORY : Hypercholesterolemia. Hypertension. Gastroesophageal reflux disease. Hepatitis C. SURGICAL HISTORY : Tonsillectomy. ENCOUNTER: Initial ACUITY: 1 day PAIN SCORE: 0/10 LOCATION: Bilateral neck PEAK SYSTOLIC VELOCITIES (cm/sec): ICA/CCA RATIO: Right: 1.9 Left: 1.9 ICA: Right: 167 Left: 219 CCA: Right: 89 Left: 112 ECA: Right: 117 Left: 111 VERTEBRAL: Right: 66 antegrade Left: 86 antegrade Elevated flow velocities and ICA/CCA ratios have been found to correlate with increased degrees of vessel stenosis, calculated as percentage of diameter relative to a normal segment of distal ICA/CCA FINDINGS: RIGHT CAROTID: There is moderate atherosclerotic plaquing at the bifurcation. There is a mildly elevated peak systol ic velocity ratio suggesting a stenosis which is less than 50%. LEFT CAROTID: There is advanced atherosclerotic plaquing at the bifurcation with elevation of the peak systolic morro ocity ratio suggesting stenosis less than 50%. VERTEBRAL ARTERIES: Antegrade flow is seen in both vertebral arteries. MISCELLANEOUS: None. CONCLUSION: Right carotid: Atherosclerotic plaquing at the bifurcation with mild elevation of the peak systolic v elocity ratio suggesting stenosis in the range of 50%. Left carotid: Extensive atherosclerotic plaquing with elevation of the peak systolic velocity suggest ing stenosis in the range of 50-69%. Vertebral circulation: There is antegrade flow bilaterally. Juvenal Navarrete MD on April 26, 2017 at 11:04 Board Certified Radiologist. This report was verified electronically.
--- NOTE | 2017-04-26 11:32 | EKG ---
Date Performed: 04/25/2017 Time Performed: 19:27:05 PTAGE: 66 years EKG: Sinus rhythm INCOMPLETE RIGHT BUNDLE BRANCH BLOCK NONSPECIFIC T-WAVE ABNORMALITY BORDERLINE ECG NO PREVIOUS TRACING DOCTOR: Palmer Capps Interpretating Date/Time 04/26/2017 11:30:00
[2017-04-26 12:17] LABS: FREE T4 0.87 NG/DL (0.76-1.46)
--- NOTE | 2017-04-26 13:46 | EKG ---
Date Performed: 04/26/2017 Time Performed: 06:28:18 PTAGE: 66 years EKG: Sinus rhythm Incomplete RBBB Anteroseptal T wave changes are nonspecific Borderline ECG No significant change fro m prior electrocardiogram. PREVIOUS TRACING : 04/26/2017 02.40 DOCTOR: Karan Lanza Interpretating Date/Time 04/26/2017 13:44:21
--- NOTE | 2017-04-26 13:50 | EKG ---
Date Performed: 04/26/2017 Time Performed: 02:40:18 PTAGE: 66 years EKG: Sinus rhythm rSr'(V1) - probable normal variant Nonspecific T wave changes Abnormal ECG No significant change fro m prior electrocardiogram. PREVIOUS TRACING : 04/25/2017 19.27 DOCTOR: Karan Lanza Interpretating Date/Time 04/26/2017 13:48:51
--- NOTE | 2017-04-26 14:38 | MB ---
cc: CHARISSE CALLE DATE OF CONSULTATION 04/26/2017 REASON FOR CONSULTATION This is a 66-year-old right-handed man with hypertension, hypercholesterolemia, some chronic renal insufficiency, hepatitis C who has had three days of tremor. The patient is not a very the historian. He denied any chest pain or headache. No new medication. REVIEW OF SYSTEMS He denies any diabetes, NE, stent, angioplasty, A. fib, Coumadin pulmonary disease, thyroid disease, lupus, ulcer, cancer, seizure, stroke. SOCIAL HISTORY He is a smoker. He is not a drinker. He lives with his . FAMILY HISTORY Negative for cancer or seizure. Positive stroke in his father. MEDICATIONS At home: 1. Ranitidine 1. Gemfibrozil 2. Alendronate 3. B12 4. Atorvastatin 5. Morphine 6. Enalapril 7. Hydrochlorothiazide 8. 81 of Aspirin 9. Allopurinol 10. Metoprolol PAST MEDICAL HISTORY As above. Also GERD. PHYSICAL EXAM VITAL SIGNS: 99.5, 152/67, 18, pulse rate 55-76. NECK: There were no carotid bruits. HEART: Regular rhythm. I did not detect a murmur. NEUROLOGIC: Pupils are equally. He has strabismus. Extraocular movements, some restriction of the medial gaze of the left eye. Visual noonan, however, were full. No nystagmus. Face is symmetric. Tongue was midline. He had normal strength in the upper and lower extremities bilaterally. Toes downgoing bilaterally. He is not ataxic on [id number]. Pinprick intact throughout as well as vibratory sense. He was awake, a little bit slowly to answer. He seems slightly lethargic, not a great historian. He knew however the month and the year and that he was in [facility]. He followed commands well. It was not aphasic. He did have asterixis bilaterally and also some resting slight asterixis of his thumbs and fingers. LABS White count was 13, today it is 11, otherwise CBC normal. The ammonia level was 54, troponin 6. BMP shows a creatinine of 3.6 with a BUN of 61, AST is 84, ALT is 36. CPK was 2300, albumin 3.4, BNP 178, calcium 8.3, magnesium 2.9. Coags normal. In 2004, his B12 was low normal at 272 and methylmalonic acid at that time was normal. He had an S-PEP done which was negative. He also had a creatinine of 1.2 in 2012 now 3.6. We will check an ABG. He had an MRI of his brain that showed some white matter changes. MRA of the neck was non-contrast left vertebral dominant. Possible some narrowing in the carotids bilaterally. CT of the brain read as negative. EKG was sinus rhythm. Review of the MRI films, diffusion sequence negative, flair sequence essentially normal. The right internal carotid artery there may be an area of stenosis there possibly severe. There seems to be some drop out of the signal, but again noncontrast. IMPRESSION 1. Metabolic encephalopathy. 2. He also has some significant venostasis issues with some ulcerations there and that could be contributing to his current problems. PLAN 1. We will check an EEG on him. 2. Carotid ultrasound with a question carotid stenosis. 3. Some additional blood work including an ABG. 4. Have physical therapy see him, but this appears to be more of a metabolic encephalopathy. I defer to the med team as I think he has an infection and cellulitis in the legs. 5. Put him on telemetry. I will be following him with you in the hospital. MD MO Sanchez/AMEENA /8:00 AM /2:28 PM
[2017-04-26] MEDS: 1/2 NS + KCL 20 MEQ INJ 1,000 ML IV SCH (15:00)
--- NOTE | 2017-04-26 15:28 | HHI.PR ---
Subjective Remarks Patient resting in bed appears drowsy c/o runny nose does not offer any other specific complaints although does say he has felt, " bad for awhile." Objective Vitals Vital Signs Date Time Temp Pulse Resp B/P (MAP) Pulse Ox O2 Delivery O2 Flow Rate FiO2 04/26/17 13:34 92 04/26/17 11:35 98.4 72 17 123/81 (95) 98 04/26/17 07:00 98.7 70 17 135/69 (91) 93 04/26/17 07:00 70 04/26/17 05:12 98.6 69 16 122/59 (80) 93 04/26/17 04:00 66 04/26/17 00:51 99.4 66 16 136/66 (89) 94 04/25/17 19:09 55 18 152/67 (95) 96 Nasal Cannula 2.00 04/25/17 18:57 76 19 147/75 (99) 97 Nasal Cannula 2.00 04/25/17 18:52 Nasal Cannula 04/25/17 18:27 99.5 76 24 149/90 (109) 92 Room Air 04/26/17 04/26/17 04/27/17 15:00 23:00 07:00 Intake Total 850 ml Output Total 500 ml Balance 350 ml Intake Oral 350 ml IV Total 500 ml Output Urine Total 500 ml # Voids 2 # Bowel Movements 1 Result Diagram: 04/26/1771604/26/17716 Other Results Laboratory Tests Test 04/25/17 19:35 04/25/17 21:50 04/26/17 01:40 04/26/17 07:17 White Blood Count 13.2 TH/MM3 11.1 TH/MM3 Red Blood Count 4.91 MIL/MM3 4.70 MIL/MM3 Hemoglobin 15.0 GM/DL 14.4 GM/DL Hematocrit 45.9 % 44.0 % Mean Corpuscular Volume 93.6 FL 93.7 FL Mean Corpuscular Hemoglobin 30.6 PG 30.7 PG Mean Corpuscular Hemoglobin Concent 32.7 % 32.7 % Red Cell Distribution Width 17.0 % 16.7 % Platelet Count 256 TH/MM3 249 TH/MM3 Mean Platelet Volume 7.7 FL 8.2 FL Neutrophils (%) (Auto) 65.2 % 66.3 % Lymphocytes (%) (Auto) 16.2 % 16.1 % Monocytes (%) (Auto) 15.4 % 13.2 % Eosinophils (%) (Auto) 2.1 % 3.3 % Basophils (%) (Auto) 1.1 % 1.1 % Neutrophils # (Auto) 8.6 TH/MM3 7.4 TH/MM3 Lymphocytes # (Auto) 2.1 TH/MM3 1.8 TH/MM3 Monocytes # (Auto) 2.0 TH/MM3 1.5 TH/MM3 Eosinophils # (Auto) 0.3 TH/MM3 0.4 TH/MM3 Basophils # (Auto) 0.1 TH/MM3 0.1 TH/MM3 CBC Comment DIFF FINAL DIFF FINAL Differential Comment Prothrombin Time 10.7 SEC Prothromb Time International Ratio 1.0 RATIO Activated Partial Thromboplast Time 29.4 SEC Blood Urea Nitrogen 61 MG/DL 61 MG/DL Creatinine 3.59 MG/DL 2.52 MG/DL Random Glucose 83 MG/DL 137 MG/DL Total Protein 7.6 GM/DL 6.5 GM/DL Albumin 3.4 GM/DL 2.8 GM/DL Calcium Level 8.3 MG/DL 8.7 MG/DL Magnesium Level 2.9 MG/DL Alkaline Phosphatase 93 U/L 81 U/L Aspartate Amino Transf (AST/SGOT) 84 U/L 69 U/L Alanine Aminotransferase (ALT/SGPT) 36 U/L 30 U/L Total Bilirubin 0.6 MG/DL 0.7 MG/DL Sodium Level 136 MEQ/L 138 MEQ/L Potassium Level 4.5 MEQ/L 4.3 MEQ/L Chloride Level 103 MEQ/L 107 MEQ/L Carbon Dioxide Level 25.0 MEQ/L 23.0 MEQ/L Anion Gap 8 MEQ/L 8 MEQ/L Estimat Glomerular Filtration Rate 17 ML/MIN 26 ML/MIN Lactic Acid Level 1.3 mmol/L Total Creatine Kinase 2346 U/L 1259 U/L Creatine Kinase MB 70.8 NG/ML 34.8 NG/ML Creatine Kinase MB % 3.0 % 2.8 % Troponin I 6.63 NG/ML 5.95 NG/ML 5.83 NG/ML B-Type Natriuretic Peptide 178 PG/ML Ammonia 54 MCMOL/L 53 MCMOL/L Erythrocyte Sedimentation Rate 24 mm/hr Vitamin B12 Level 933 PG/ML Free Thyroxine 0.87 NG/DL Thyroid Stimulating Hormone 3rd Gen 0.909 uIU/ML Test 04/26/17 09:20 04/26/17 13:51 04/26/17 13:54 Blood Gas Puncture Site RT RADIAL Blood Gas Patient Temperature 98.6 Blood Gas HCO3 24 mmol/L Blood Gas Base Excess -1.6 mmol/L Blood Gas Oxygen Saturation 85 % Arterial Blood pH 7.31 Arterial Blood Partial Pressure CO2 49 mmHg Arterial Blood Partial Pressure O2 61 mmHg Arterial Blood Oxygen Content 17.9 Vol % Arterial Blood Carboxyhemoglobin 4.4 % Arterial Blood Methemoglobin 1.9 % Blood Gas Hemoglobin 15.1 G/DL Blood Gas Inspired Oxygen 21 % Imaging Last [address] 04/25/171903 Signed Impressions: Service Date/Time: April 20:43 - CONCLUSION: No acute intracranial abnormality. Mild sinus disease. Cisco Kimball MD Chest X-Ray 04/25/171903 Signed Impressions: Service Date/Time: April 20:16 - CONCLUSION: No evidence of acute cardiopulmonary disease. Cisco Kimball MD Objective Remarks GENERAL: This is a well-nourished, obese, well-developed patient, in no apparent distress. Appears somewhat somnolent, but arouses to voice and answers questions appropriately. SKIN: chronic venous stasis dermatitis BLE with few skin avulsions noted. HEAD: Atraumatic. Normocephalic. No temporal or scalp tenderness. CARDIOVASCULAR: Regular rate and rhythm without murmurs, gallops, or rubs. RESPIRATORY: Clear to auscultation. Breath sounds equal bilaterally. No wheezes , rales, or rhonchi. GASTROINTESTINAL: Abdomen soft, non-tender, nondistended. No guarding. BS wnl MUSCULOSKELETAL: 1+ edema in distal BLE with venous stasis. No calf tenderness. NEUROLOGICAL: Awake and alert. No focal deficits noted. 4 out of 5 muscle strength in all muscle groups. Normal speech but somewhat slow to respond. A/P Problem List: (1) Acute kidney injury superimposed on CKD ICD Codes: N17.9 - Acute kidney failure, unspecified; N18.9 - Chronic kidney disease, unspecified Status: Acute Plan: creatinine 3.59 -> 2.52 continue IV hydration. Recheck in AM. Monitor UOP. Baseline Cr around 1.2 consider renal u/s and further nephrology eval if not improving with IVF (2) NSTEMI (non-ST elevated myocardial infarction) ICD Codes: I21.4 - Non-ST elevation (NSTEMI) myocardial infarction Status: Acute Plan: NSTEMI- unknown etiology consult cardiology, Appreciated cardiology assistance recommending wait for renal recovery then likely [facility] continuous telemetry Continue BB (3) Tremor of hands and face ICD Codes: R25.1 - Tremor, unspecified Status: Acute Plan: ? etiology. Possibly a/w metabolic disturbance. No acute finding on CT. No tremor noted on exam Consult neurology, appreciate recommendations request US carotid arteries PT eval and treat Prior stroke noted. MRI reviewed and reveals: No bleed, infarct or other intracranial abnormality, mild chronic white matter changes (4) Hypertension ICD Codes: I10 - Essential (primary) hypertension Status: Chronic Plan: continue rx. (5) Hyperlipidemia ICD Codes: E78.5 - Hyperlipidemia, unspecified Status: Chronic Plan: continue rx Assessment and Plan Patient examined. Assessment and plan formulated with Maeve Owens PA-C. I agree with the above. Problem Qualifiers (1) Hypertension: Qualified Codes: I10 - Essential (primary) hypertension (2) Hyperlipidemia: Qualified Codes: E78.00 - Pure hypercholesterolemia, unspecified Maeve Owens Apr 26, 2017 15:28 Vicente Arcos DO Apr 29, 2017 15:27
--- NOTE | 2017-04-26 17:42 | MG ---
cc: JOSE ANTONIO UNGER M.D. Lab No: [id number] Date: 04/26/2017 Age: Sex: M Race: TECHNIQUE: 17 channel EEG. DESCRIPTION: The background rhythm reveals a symmetrical alpha rhythm, frequency 8 Hz, amplitude 30-40 microvolts. No lateralizing features are seen. There are no epileptiform discharges. During drowsiness there is slowing in the theta range. Photic results in a modest driving response. INTERPRETATION: Normal EEG. MD LEONARDO Asher/SHE /3:21 PM /5:23 PM
[2017-04-26] MEDS: LORATADINE 10 MG TAB PO SCH (18:12)
[2017-04-26] MEDS: ATORVASTATIN 40 MG TAB PO SCH (21:27)
[2017-04-27] VITALS (24 sets, daily range): BP systolic 164–191; BP diastolic 80–102; PULSE 47–76; RESP 18–22; TEMP 97.5–99; O2SAT 93–98
[2017-04-27] MEDS: ONDANSETRON HCL 4 MG/2 ML VIAL IV PRN ×5 (01:06→16:42)
[2017-04-27] MEDS: 1/2 NS + KCL 20 MEQ INJ 1,000 ML IV SCH (01:08)
[2017-04-27 06:40] LABS: BLOOD GAS BASE EXCESS -2.3 mmol/L (-2-2); BLOOD GAS CARBOXYHEMOGLOBIN 2.5 % (0-4); BLOOD GAS HCO3 23 mmol/L (22-26); BLOOD GAS METHEMOGLOBIN 1.8 % (0-2); BLOOD GAS O2 HGB SATURATION 92 % (90-100); BLOOD GAS OXYGEN CONTENT 20.3 Vol % (12.0-20.0); BLOOD GAS PCO2 45 mmHg (38-42); BLOOD GAS PO2 92 mmHg (61-120); BLOOD GAS TOTAL HGB 15.6 G/DL (12.0-16.0); TEMP CORR TO 98.6
[2017-04-27 06:41] LABS: CRITICAL VALUE NO; DRAW SITE LT RADIAL; LITER FLOW 2 L/M; NUMBER OF ARTERIAL PUNCTURES 1; OXYGEN DEVICE NASAL CANNULA; STAT NO; ULNAR PULSE PRESENT
[2017-04-27 07:15] LABS: BASOPHIL # 0.1 TH/MM3 (0-0.2); BASOPHIL % 0.9 % (0.0-2.0); EOSINOPHIL # 0.1 TH/MM3 (0-0.4); EOSINOPHIL % 0.9 % (0.0-4.0); HEMATOCRIT 47.2 % (39.0-51.0); HEMO FLAGS DIFF FINAL; LYMPHOCYTE # 1.4 TH/MM3 (1.0-4.8); MEAN CELL VOLUME 94.5 FL (80.0-100.0); MEAN CORPUSCULAR HEMOGLOBIN 30.2 PG (27.0-34.0); MONO % 7.7 % (0.0-8.0); NEUT % 79.5 % (16.0-70.0); PLATELET COUNT 260 TH/MM3 (150-450); RED BLOOD COUNT 4.99 MIL/MM3 (4.50-5.90); RED CELL DISTRIBUTION WIDTH 16.9 % (11.6-17.2); WHITE BLOOD COUNT 12.6 TH/MM3 (4.0-11.0)
[2017-04-27 08:14] LABS: BICARBONATE 22.5 MEQ/L (21.0-32.0); MAGNESIUM 2.4 MG/DL (1.5-2.5); POTASSIUM 5.6 MEQ/L (3.5-5.1)
--- NOTE | 2017-04-27 08:34 | PD.CARD.PN ---
Subjective Subjective Remarks The chart was reviewed. The patient notes mild dizziness when his eyes are closed. He has no lightheadedness, chest pain, shortness of breath, GI symptoms or bleeding. Telemetry reveals sinus bradycardia. Echocardiogram is pending. Objective Medications Reviewed Vital Signs / I&O Vital Signs Date Time Temp Pulse Resp B/P (MAP) Pulse Ox O2 Delivery O2 Flow Rate FiO2 04/27/17 07:56 49 04/27/17 06:00 50 04/27/17 05:00 47 04/27/17 04:11 165/84 (111) 04/27/17 04:07 97.9 49 20 171/92 (118) 98 04/27/17 04:00 47 04/27/17 03:00 48 04/27/17 02:00 50 04/27/17 01:10 164/99 (120) 04/27/17 01:00 51 04/27/17 00:30 98.4 58 20 191/102 (131) 93 04/27/17 00:00 58 04/26/17 23:00 56 04/26/17 22:00 60 04/26/17 21:00 50 04/26/17 20:00 54 04/26/17 19:51 98.4 63 20 162/86 (111) 94 04/26/17 19:00 75 04/26/17 18:46 50 04/26/17 17:00 49 04/26/17 16:00 66 04/26/17 15:42 60 04/26/17 15:00 98.3 56 18 148/83 (104) 100 04/26/17 14:00 58 04/26/17 13:34 92 04/26/17 13:00 48 04/26/17 12:00 52 04/26/17 11:35 98.4 72 17 123/81 (95) 98 04/26/17 11:00 54 04/26/17 10:00 64 04/26/17 09:00 68 I/O 04/26/17 04/26/17 04/26/17 04/27/17 04/27/17 04/27/17 07:00 15:00 23:00 07:00 15:00 23:00 Intake Total 850 ml 1300 ml 480 ml Output Total 320 ml 500 ml 600 ml 1100 ml Balance -320 ml 350 ml 700 ml -620 ml Intake Oral 350 ml 400 ml 480 ml IV Total 500 ml 900 ml Output Urine Total 320 ml 500 ml 600 ml 900 ml Emesis 200 ml # Voids 2 2 # Bowel Movements 1 1 0 Physical Exam GENERAL: Well-nourished, well-developed patient in no apparent distress. SKIN: Warm and dry. NECK: JVD normal - less than or equal to 5 cm H20. CARDIOVASCULAR: Regular rate and rhythm without murmurs, gallops, or rubs. RESPIRATORY: Normal breath sounds - equal bilaterally. No accessory muscle use. No wheezes, rales or rubs. PERIPHERY: No cyanosis, or edema. Laboratory Laboratory Tests Test 04/26/17 09:20 04/26/17 13:51 04/26/17 13:54 04/27/17 06:23 Blood Gas Puncture Site RT RADIAL Blood Gas Patient Temperature 98.6 Blood Gas HCO3 24 mmol/L Blood Gas Base Excess -1.6 mmol/L Blood Gas Oxygen Saturation 85 % Arterial Blood pH 7.31 Arterial Blood Partial Pressure CO2 49 mmHg Arterial Blood Partial Pressure O2 61 mmHg Arterial Blood Oxygen Content 17.9 Vol % Arterial Blood Carboxyhemoglobin 4.4 % Arterial Blood Methemoglobin 1.9 % Blood Gas Hemoglobin 15.1 G/DL Blood Gas Inspired Oxygen 21 % White Blood Count 12.6 TH/MM3 Red Blood Count 4.99 MIL/MM3 Hemoglobin 15.1 GM/DL Hematocrit 47.2 % Mean Corpuscular Volume 94.5 FL Mean Corpuscular Hemoglobin 30.2 PG Mean Corpuscular Hemoglobin Concent 32.0 % Red Cell Distribution Width 16.9 % Platelet Count 260 TH/MM3 Mean Platelet Volume 8.1 FL Neutrophils (%) (Auto) 79.5 % Lymphocytes (%) (Auto) 11.0 % Monocytes (%) (Auto) 7.7 % Eosinophils (%) (Auto) 0.9 % Basophils (%) (Auto) 0.9 % Neutrophils # (Auto) 10.0 TH/MM3 Lymphocytes # (Auto) 1.4 TH/MM3 Monocytes # (Auto) 1.0 TH/MM3 Eosinophils # (Auto) 0.1 TH/MM3 Basophils # (Auto) 0.1 TH/MM3 CBC Comment DIFF FINAL Differential Comment Blood Urea Nitrogen 47 MG/DL Creatinine 1.50 MG/DL Random Glucose 113 MG/DL Calcium Level 8.5 MG/DL Magnesium Level 2.4 MG/DL Sodium Level 139 MEQ/L Potassium Level 5.6 MEQ/L Chloride Level 110 MEQ/L Carbon Dioxide Level 22.5 MEQ/L Anion Gap 7 MEQ/L Estimat Glomerular Filtration Rate 47 ML/MIN Test 04/27/17 06:24 Blood Gas Puncture Site LT RADIAL Blood Gas Patient Temperature 98.6 Blood Gas HCO3 23 mmol/L Blood Gas Base Excess -2.3 mmol/L Blood Gas Oxygen Saturation 92 % Arterial Blood pH 7.33 Arterial Blood Partial Pressure CO2 45 mmHg Arterial Blood Partial Pressure O2 92 mmHg Arterial Blood Oxygen Content 20.3 Vol % Arterial Blood Carboxyhemoglobin 2.5 % Arterial Blood Methemoglobin 1.8 % Blood Gas Hemoglobin 15.6 G/DL Oxygen Delivery Device NASAL CANNULA Blood Gas Liter Flow 2 L/M Imaging Last 48 hours Impressions Carotid Artery Ultrasound 04/26/17 0809 Signed Impressions: Service Date/Time: Wednesday, April 26, 2017 08:53 - CONCLUSION: Right carotid: Atherosclerotic plaquing at the bifurcation with mild elevation of the peak systolic velocity ratio suggesting stenosis in the range of 50%%. Left carotid: Extensive atherosclerotic plaquing with elevation of the peak systolic velocity suggesting stenosis in the range of 50-69%%. Vertebral circulation: There is antegrade flow bilaterally. Juvenal Navarrete MD Head CT 04/25/171903 Signed Impressions: Service Date/Time: April 20:43 - CONCLUSION: No acute intracranial abnormality. Mild sinus disease. Cisco Kimball MD Chest X-Ray 04/25/171903 Signed Impressions: Service Date/Time: April 20:16 - CONCLUSION: No evidence of acute cardiopulmonary disease. Cisco Kimball MD Assessment and Plan Assessment and Plan Problems: Tremors-nonspecific Elevated troponin and CPK-the troponins are flat. This could be a noncardiac etiology as the patient did have acute on chronic kidney disease. Bradycardia Hypertension Hyperlipidemia Hyperkalemia Acute on chronic kidney disease Moderate carotid disease Recommendations: Metoprolol has been decreased Hold potassium supplements Renal function improving We'll leave risk factor modification to the primary service. His metoprolol can be decreased or discontinued if he remains bradycardiac. Echocardiogram is pending [facility] cardiology will return on Saturday. They will decide on further ischemic workup. I will be available tomorrow on an as-needed basis. Karan Lanza MD Apr 27, 2017 08:34
[2017-04-27] MEDS ORDERED: SODIUM POLYSTYRENE SULFONATE SUSP 15 GM/60 ML CUP PO ONE (09:00)
[2017-04-27] MEDS ORDERED: Vancomycin Consult Pharmacy 1 EA OTHER SCH (09:15)
--- NOTE | 2017-04-27 09:28 | HHI.PR ---
Subjective Remarks Patient more alert today C/O nausea and reports vomiting x 1 earlier today. Denies blood or coffee ground emesis Patient also denies chest pain or shortness of breath Objective Vitals Vital Signs Date Time Temp Pulse Resp B/P (MAP) Pulse Ox O2 Delivery O2 Flow Rate FiO2 04/27/17 07:56 49 04/27/17 06:00 50 04/27/17 05:00 47 04/27/17 04:11 165/84 (111) 04/27/17 04:07 97.9 49 20 171/92 (118) 98 04/27/17 04:00 47 04/27/17 03:00 48 04/27/17 02:00 50 04/27/17 01:10 164/99 (120) 04/27/17 01:00 51 04/27/17 00:30 98.4 58 20 191/102 (131) 93 04/27/17 00:00 58 04/26/17 23:00 56 04/26/17 22:00 60 04/26/17 21:00 50 04/26/17 20:00 54 04/26/17 19:51 98.4 63 20 162/86 (111) 94 04/26/17 19:00 75 04/26/17 18:46 50 04/26/17 17:00 49 04/26/17 16:00 66 04/26/17 15:42 60 04/26/17 15:00 98.3 56 18 148/83 (104) 100 04/26/17 14:00 58 04/26/17 13:34 92 04/26/17 13:00 48 04/26/17 12:00 52 04/26/17 11:35 98.4 72 17 123/81 (95) 98 04/26/17 11:00 54 04/26/17 10:00 64 Result Diagram: 04/27/17 0623 04/27/17 0623 Other Results Laboratory Tests Test 04/25/17 19:35 04/25/17 21:50 04/26/17 01:40 04/26/17 07:17 White Blood Count 13.2 TH/MM3 11.1 TH/MM3 Red Blood Count 4.91 MIL/MM3 4.70 MIL/MM3 Hemoglobin 15.0 GM/DL 14.4 GM/DL Hematocrit 45.9 % 44.0 % Mean Corpuscular Volume 93.6 FL 93.7 FL Mean Corpuscular Hemoglobin 30.6 PG 30.7 PG Mean Corpuscular Hemoglobin Concent 32.7 % 32.7 % Red Cell Distribution Width 17.0 % 16.7 % Platelet Count 256 TH/MM3 249 TH/MM3 Mean Platelet Volume 7.7 FL 8.2 FL Neutrophils (%) (Auto) 65.2 % 66.3 % Lymphocytes (%) (Auto) 16.2 % 16.1 % Monocytes (%) (Auto) 15.4 % 13.2 % Eosinophils (%) (Auto) 2.1 % 3.3 % Basophils (%) (Auto) 1.1 % 1.1 % Neutrophils # (Auto) 8.6 TH/MM3 7.4 TH/MM3 Lymphocytes # (Auto) 2.1 TH/MM3 1.8 TH/MM3 Monocytes # (Auto) 2.0 TH/MM3 1.5 TH/MM3 Eosinophils # (Auto) 0.3 TH/MM3 0.4 TH/MM3 Basophils # (Auto) 0.1 TH/MM3 0.1 TH/MM3 CBC Comment DIFF FINAL DIFF FINAL Differential Comment Prothrombin Time 10.7 SEC Prothromb Time International Ratio 1.0 RATIO Activated Partial Thromboplast Time 29.4 SEC Blood Urea Nitrogen 61 MG/DL 61 MG/DL Creatinine 3.59 MG/DL 2.52 MG/DL Random Glucose 83 MG/DL 137 MG/DL Total Protein 7.6 GM/DL 6.5 GM/DL Albumin 3.4 GM/DL 2.8 GM/DL Calcium Level 8.3 MG/DL 8.7 MG/DL Magnesium Level 2.9 MG/DL Alkaline Phosphatase 93 U/L 81 U/L Aspartate Amino Transf (AST/SGOT) 84 U/L 69 U/L Alanine Aminotransferase (ALT/SGPT) 36 U/L 30 U/L Total Bilirubin 0.6 MG/DL 0.7 MG/DL Sodium Level 136 MEQ/L 138 MEQ/L Potassium Level 4.5 MEQ/L 4.3 MEQ/L Chloride Level 103 MEQ/L 107 MEQ/L Carbon Dioxide Level 25.0 MEQ/L 23.0 MEQ/L Anion Gap 8 MEQ/L 8 MEQ/L Estimat Glomerular Filtration Rate 17 ML/MIN 26 ML/MIN Lactic Acid Level 1.3 mmol/L Total Creatine Kinase 2346 U/L 1259 U/L Creatine Kinase MB 70.8 NG/ML 34.8 NG/ML Creatine Kinase MB % 3.0 % 2.8 % Troponin I 6.63 NG/ML 5.95 NG/ML 5.83 NG/ML B-Type Natriuretic Peptide 178 PG/ML Ammonia 54 MCMOL/L 53 MCMOL/L Erythrocyte Sedimentation Rate 24 mm/hr Vitamin B12 Level 933 PG/ML Free Thyroxine 0.87 NG/DL Thyroid Stimulating Hormone 3rd Gen 0.909 uIU/ML Test 04/26/17 09:20 04/26/17 13:51 04/26/17 13:54 04/27/17 06:23 Blood Gas Puncture Site RT RADIAL Blood Gas Patient Temperature 98.6 Blood Gas HCO3 24 mmol/L Blood Gas Base Excess -1.6 mmol/L Blood Gas Oxygen Saturation 85 % Arterial Blood pH 7.31 Arterial Blood Partial Pressure CO2 49 mmHg Arterial Blood Partial Pressure O2 61 mmHg Arterial Blood Oxygen Content 17.9 Vol % Arterial Blood Carboxyhemoglobin 4.4 % Arterial Blood Methemoglobin 1.9 % Blood Gas Hemoglobin 15.1 G/DL Blood Gas Inspired Oxygen 21 % White Blood Count 12.6 TH/MM3 Red Blood Count 4.99 MIL/MM3 Hemoglobin 15.1 GM/DL Hematocrit 47.2 % Mean Corpuscular Volume 94.5 FL Mean Corpuscular Hemoglobin 30.2 PG Mean Corpuscular Hemoglobin Concent 32.0 % Red Cell Distribution Width 16.9 % Platelet Count 260 TH/MM3 Mean Platelet Volume 8.1 FL Neutrophils (%) (Auto) 79.5 % Lymphocytes (%) (Auto) 11.0 % Monocytes (%) (Auto) 7.7 % Eosinophils (%) (Auto) 0.9 % Basophils (%) (Auto) 0.9 % Neutrophils # (Auto) 10.0 TH/MM3 Lymphocytes # (Auto) 1.4 TH/MM3 Monocytes # (Auto) 1.0 TH/MM3 Eosinophils # (Auto) 0.1 TH/MM3 Basophils # (Auto) 0.1 TH/MM3 CBC Comment DIFF FINAL Differential Comment Blood Urea Nitrogen 47 MG/DL Creatinine 1.50 MG/DL Random Glucose 113 MG/DL Calcium Level 8.5 MG/DL Magnesium Level 2.4 MG/DL Sodium Level 139 MEQ/L Potassium Level 5.6 MEQ/L Chloride Level 110 MEQ/L Carbon Dioxide Level 22.5 MEQ/L Anion Gap 7 MEQ/L Estimat Glomerular Filtration Rate 47 ML/MIN Test 04/27/17 06:24 Blood Gas Puncture Site LT RADIAL Blood Gas Patient Temperature 98.6 Blood Gas HCO3 23 mmol/L Blood Gas Base Excess -2.3 mmol/L Blood Gas Oxygen Saturation 92 % Arterial Blood pH 7.33 Arterial Blood Partial Pressure CO2 45 mmHg Arterial Blood Partial Pressure O2 92 mmHg Arterial Blood Oxygen Content 20.3 Vol % Arterial Blood Carboxyhemoglobin 2.5 % Arterial Blood Methemoglobin 1.8 % Blood Gas Hemoglobin 15.6 G/DL Oxygen Delivery Device NASAL CANNULA Blood Gas Liter Flow 2 L/M Imaging Last [address] 04/25/171903 Signed Impressions: Service Date/Time: April 20:43 - CONCLUSION: No acute intracranial abnormality. Mild sinus disease. Cisco Kimball MD Chest X-Ray 04/25/171903 Signed Impressions: Service Date/Time: April 20:16 - CONCLUSION: No evidence of acute cardiopulmonary disease. Cisco Kimball MD Objective Remarks GENERAL: This is a well-nourished, obese, well-developed patient SKIN: chronic venous stasis dermatitis BLE with few skin avulsions noted. HEAD: Atraumatic. Normocephalic. No temporal or scalp tenderness. CARDIOVASCULAR: Regular rate and rhythm without murmurs, gallops, or rubs. RESPIRATORY: Clear to auscultation. Breath sounds equal bilaterally. No wheezes , rales, or rhonchi. GASTROINTESTINAL: Abdomen soft, non-tender, nondistended. No guarding. hypoactive BS MUSCULOSKELETAL: 1+ edema in distal BLE with venous stasis. No calf tenderness. NEUROLOGICAL: Awake and alert. No focal deficits noted. 4 out of 5 muscle strength in all muscle groups. Normal speech but somewhat slow to respond. A/P Problem List: (1) Bacteremia ICD Codes: R78.81 - Bacteremia Plan: blood culture positive for Gram positive Cocci start vancomycin with pharmacy consult CXR in AM UA C&S if indicated repeat CBC in AM Zofran as need for nausea (2) Acute kidney injury superimposed on CKD ICD Codes: N17.9 - Acute kidney failure, unspecified; N18.9 - Chronic kidney disease, unspecified Status: Acute Plan: creatinine 3.59 -> 2.52 -> 1.5 continue IV hydration. Recheck BMP in AM. Monitor UOP. Baseline Cr around 1.2 consider renal u/s and further nephrology eval if not improving with IVF (3) NSTEMI (non-ST elevated myocardial infarction) ICD Codes: I21.4 - Non-ST elevation (NSTEMI) myocardial infarction Status: Acute Plan: NSTEMI- unknown etiology consult cardiology, Appreciated cardiology assistance recommending wait for renal recovery then likely [facility] continuous telemetry Continue BB with hold parameters as patient is bradycardic (4) Tremor of hands and face ICD Codes: R25.1 - Tremor, unspecified Status: Acute Plan: ? etiology. Possibly a/w metabolic disturbance. No acute finding on CT. No tremor noted on exam Consult neurology, appreciate recommendations request US carotid arteries PT eval and treat Prior stroke noted. MRI reviewed and reveals: No bleed, infarct or other intracranial abnormality, mild chronic white matter changes (5) Hypertension ICD Codes: I10 - Essential (primary) hypertension Status: Chronic Plan: metoprolol 25 mg BID with hold parameters add Procardia XL 30 mg daily (6) Hyperlipidemia ICD Codes: E78.5 - Hyperlipidemia, unspecified Status: Chronic Plan: continue rx (7) Hyperkalemia ICD Codes: E87.5 - Hyperkalemia Plan: Kayexalate change IV fluid to 1/2 NS recheck BMP in AM continuous telemetry Assessment and Plan Patient examined. Assessment and plan formulated with Maeve Owens PA-C. I agree with the above. Problem Qualifiers (1) Hypertension: Qualified Codes: I10 - Essential (primary) hypertension (2) Hyperlipidemia: Qualified Codes: E78.00 - Pure hypercholesterolemia, unspecified Maeve Owens Apr 27, 2017 09:28 Vicente Arcos DO Apr 29, 2017 15:28
[2017-04-27] MEDS: METOPROLOL TARTRATE 25 MG TAB PO SCH ×2 (09:39→20:54)
[2017-04-27] MEDS: LORATADINE 10 MG TAB PO SCH (09:39)
[2017-04-27] MEDS: FAMOTIDINE 20 MG TAB PO SCH ×2 (09:39→20:54)
[2017-04-27] MEDS: ASPIRIN 325 MG TAB PO SCH (09:39)
[2017-04-27] MEDS: CYANOCOBALAMIN 100 MCG TAB PO SCH (09:41)
[2017-04-27] MEDS ORDERED: INFLUENZA VIRUS VACCINE (QUADRIVALENT) 0.5 ML SYR IM ONE (10:00)
[2017-04-27] MEDS ORDERED: PNEUMOCOCCAL POLYVALENT INJ 25 MCG/0.5 ML SYR IM ONE (10:00)
[2017-04-27] MEDS ORDERED: VANCOMYCIN INJ 1,000 MG in SODIUM CHLOR 0.9% 250 ML INJ 250 ML IV SCH (10:00)
--- NOTE | 2017-04-27 10:40 | HHI.PR ---
Objective Vital Signs Date Time Temp Pulse Resp B/P (MAP) Pulse Ox O2 Delivery O2 Flow Rate FiO2 04/27/17 07:56 49 04/27/17 06:00 50 04/27/17 05:00 47 04/27/17 04:11 165/84 (111) 04/27/17 04:07 97.9 49 20 171/92 (118) 98 04/27/17 04:00 47 04/27/17 03:00 48 04/27/17 02:00 50 04/27/17 01:10 164/99 (120) 04/27/17 01:00 51 04/27/17 00:30 98.4 58 20 191/102 (131) 93 04/27/17 00:00 58 04/26/17 23:00 56 04/26/17 22:00 60 04/26/17 21:00 50 04/26/17 20:00 54 04/26/17 19:51 98.4 63 20 162/86 (111) 94 04/26/17 19:00 75 04/26/17 18:46 50 04/26/17 17:00 49 04/26/17 16:00 66 04/26/17 15:42 60 04/26/17 15:00 98.3 56 18 148/83 (104) 100 04/26/17 14:00 58 04/26/17 13:34 92 04/26/17 13:00 48 04/26/17 12:00 52 04/26/17 11:35 98.4 72 17 123/81 (95) 98 04/26/17 11:00 54 I/O 04/26/17 04/26/17 04/26/17 04/27/17 04/27/17 04/27/17 07:00 15:00 23:00 07:00 15:00 23:00 Intake Total 850 ml 1300 ml 480 ml Output Total 320 ml 500 ml 600 ml 1100 ml Balance -320 ml 350 ml 700 ml -620 ml Intake Oral 350 ml 400 ml 480 ml IV Total 500 ml 900 ml Output Urine Total 320 ml 500 ml 600 ml 900 ml Emesis 200 ml # Voids 2 2 # Bowel Movements 1 1 0 Result Diagram: 04/27/1762204/27/17622 Objective Remarks awake alert much better more alert and no asterixis Assessment and Plan Assessment and Plan imp 7.31 with o2 sat 85% yest with improvemnt in medical condition met enceph resolved simona cellulits legs and dehydration brought on asterixis med team and abt on case mri eeg neg us 50-69% bilat ok check ldl if ldl inc rec statin and fu us carotid in 6 months by pcp med team fu echo results plz i will sign off Cooper Terry MD Apr 27, 2017 10:40
[2017-04-27] MEDS: SODIUM CHLOR 0.45% 1000 ML INJ 1,000 ML IV SCH ×2 (11:05→19:00)
[2017-04-27] MEDS: NIFEdipine 30 MG SUSTAINED RELEASE TAB PO SCH (11:06)
--- NOTE | 2017-04-27 15:50 | ECHRPT ---
Indication: CVA/TIA CONCLUSIONS Normal left ventricular size. Wall thickness is normal. Doppler parameters are consistent with impaired left ventricular relaxtion (grade 1 diastolic dysfun ction). The right atrial size is moderately dilated. The interatrial septum not well visualized. Mild thickening of the mitral valve leaflets. Mild mitral annular calcification. Mild thickening of the mitral valve leaflets. Trace mitral valve regurgitation. The aortic valve is not well visualized. Aortic valve sclerosis is present. No aortic valve regurgitation. No aortic valve stenosis. The tricuspid valve is not well visualized. No tricuspid regurgitation. The pulmonary valve is not well visualized. The inferior vena cava is dilated. There is less than 50% respiratory change in dimension of the inferior vena cava (abnormal). There is no pericardial effusion. BP: 165 / 84 HR: 50 Rhythm: Sinus MEASUREMENTS (Male / Female) Normal Values Technical Quality:Fair 2D ECHO LV Diastolic Diameter PLAX 5.2 cm 4.2 - 5.9 / 3.9 - 5.3 cm LV Systolic Diameter PLAX 3.8 cm IVS Diastolic Thickness 0.9 cm 0.6 - 1.0 / 0.6 - 0.9 cm LVPW Diastolic Thickness 0.9 cm 0.6 - 1.0 / 0.6 - 0.9 cm LV Relative Wall Thickness 0.3 LVOT Diameter 2.2 cm Aortic Root Diameter 2.8 cm LA Systolic Diameter LX 3.9 cm 3.0 - 4.0 / 2.7 - 3.8 cm M-MODE AV Cusp Separation MM 2.1 cm DOPPLER AV Peak Velocity 178.0 cm/s AV Peak Gradient 12.7 mmHg AV Mean Gradient 6.0 mmHg AV Velocity Time Integral 35.4 cm LVOT Peak Velocity 130.0 cm/s LVOT Peak Gradient 6.8 mmHg LVOT Velocity Time Integral 29.5 cm LVOT Cardiac Index 2860.4 cm/minm AV Area Cont Eq vti 3.2 cm AV Area Cont Eq pk 2.8 cm Mitral E Point Velocity 89.5 cm/s Mitral A Point Velocity 122.0 cm/s Mitral E to A Ratio 0.7 LV E' Lateral Velocity 3.3 cm/s Mitral E to LV E' Lateral Ratio 27.0 LV E' Septal Velocity 4.4 cm/s Mitral E to LV E' Septal Ratio 20.4 PV Peak Velocity 69.9 cm/s PV Peak Gradient 2.0 mmHg FINDINGS LEFT VENTRICLE Normal left ventricular size. Wall thickness is normal. The left ventricular systolic function is normal with an estimated ejection fraction in the range of 60-65%. Doppler parameters are consistent with impaired left ventricular relaxtion (grade 1 diastolic dysfun ction). RIGHT VENTRICLE Normal right ventricular size and systolic function. LEFT ATRIUM The left atrial size is normal. RIGHT ATRIUM The right atrial size is moderately dilated. ATRIAL SEPTUM The interatrial septum not well visualized. AORTA The aortic root and proximal ascending aorta are normal in size on limited imaging. MITRAL VALVE Mild thickening of the mitral valve leaflets. Mild mitral annular calcification. Mild thickening of the mitral valve leaflets. Trace mitral valve regurgitation. AORTIC VALVE The aortic valve is not well visualized. Aortic valve sclerosis is present. No aortic valve regurgitation. No aortic valve stenosis. TRICUSPID VALVE The tricuspid valve is not well visualized. Structurally normal tricuspid valve. No tricuspid regurgitation. PULMONARY VALVE The pulmonary valve is not well visualized. VESSELS The inferior vena cava is dilated. There is less than 50% respiratory change in dimension of the inferior vena cava (abnormal). PERICARDIUM There is no pericardial effusion. Karan Lanza MD (Electronically Signed) Final Date:27 April 2017 15:49
[2017-04-27 20:17] LABS: BLOOD, URINE TRACE (NEG); GLUCOSE,URINE NEG (NEG); KETONE, URINE NEG (NEG); NITRITE,URINE NEG (NEG); URINE COLOR YELLOW (YELLW/STRAW)
[2017-04-27 20:24] LABS: COMMENT (UR) CULT NOT INDICATED; CULTURE IF INDICATED CULT NOT INDICATED
[2017-04-27] MEDS: ATORVASTATIN 40 MG TAB PO SCH (20:54)
[2017-04-27 21:51] LABS: BICARBONATE 24.1 MEQ/L (21.0-32.0); POTASSIUM 4.1 MEQ/L (3.5-5.1)
[2017-04-28] VITALS (7 sets, daily range): BP systolic 162–204; BP diastolic 83–100; PULSE 54–71; RESP 18–19; TEMP 97.2–98.2; O2SAT 94–97
[2017-04-28] MEDS: SODIUM CHLOR 0.45% 1000 ML INJ 1,000 ML IV SCH ×2 (00:46→15:48)
[2017-04-28] MEDS: MORPHINE SULFATE 4 MG/ML INJ IV PUSH PRN ×3 (02:52→20:24)
[2017-04-28] MEDS: VANCOMYCIN 1,000 MG/NS 250 ML IV SCH ×4 (02:57→20:24)
[2017-04-28] MEDS: LORATADINE 10 MG TAB PO SCH (07:56)
[2017-04-28] MEDS: ASPIRIN 325 MG TAB PO SCH (07:56)
[2017-04-28] MEDS: FAMOTIDINE 20 MG TAB PO SCH ×2 (07:56→20:23)
[2017-04-28] MEDS: NIFEdipine 30 MG SUSTAINED RELEASE TAB PO SCH (07:56)
[2017-04-28] MEDS: METOPROLOL TARTRATE 25 MG TAB PO SCH ×2 (07:56→20:23)
[2017-04-28] MEDS: CYANOCOBALAMIN 100 MCG TAB PO SCH (07:58)
[2017-04-28 08:05] LABS: AUTOMATED NEUTROPHIL # 11.8 TH/MM3 (1.8-7.7); BASOPHIL # 0.1 TH/MM3 (0-0.2); BASOPHIL % 0.7 % (0.0-2.0); EOSINOPHIL # 0.1 TH/MM3 (0-0.4); EOSINOPHIL % 0.4 % (0.0-4.0); HEMATOCRIT 44.6 % (39.0-51.0); HEMO FLAGS DIFF FINAL; LYMPH % 10.3 % (9.0-44.0); LYMPHOCYTE # 1.5 TH/MM3 (1.0-4.8); MEAN CELL VOLUME 92.8 FL (80.0-100.0); MEAN CORPUSCULAR HEMOGLOBIN 30.8 PG (27.0-34.0); MEAN CORPUSCULAR HGB CONC 33.2 % (32.0-36.0); MONO % 7.6 % (0.0-8.0); PLATELET COUNT 259 TH/MM3 (150-450); RED BLOOD COUNT 4.81 MIL/MM3 (4.50-5.90); RED CELL DISTRIBUTION WIDTH 16.5 % (11.6-17.2); WHITE BLOOD COUNT 14.6 TH/MM3 (4.0-11.0)
[2017-04-28 08:33] LABS: BICARBONATE 24.6 MEQ/L (21.0-32.0); HDL CHOLESTEROL 26.3 MG/DL (40.0-60.0); MAGNESIUM 1.7 MG/DL (1.5-2.5); POTASSIUM 3.9 MEQ/L (3.5-5.1)
--- NOTE | 2017-04-28 09:41 | RADRPT ---
EXAM DATE/TIME: 04/28/2017 08:52 [place] COMPARISON: CHEST SINGLE AP, April 25, 2017, 20:16. INDICATIONS : Dry cough for two days. MEDICAL HISTORY : Hypercholesterolemia. Hypertension. Gastroesophageal reflux disease. Hepatitis C. SURGICAL HISTORY : Tonsillectomy. ENCOUNTER: Initial ACUITY: 2 days PAIN SCORE: 0/10 LOCATION: Bilateral chest FINDINGS: The heart size is normal. There is increased linear density at the left base. The right lung is clear . No effusion is seen. CONCLUSION: Increased linear density at the left base that appears new. This is likely related to mild atelectasi s or consolidation. Cisco Azevedo MD on April 28, 2017 at 9:39 Board Certified Radiologist. This report was verified electronically.
[2017-04-28] MEDS ORDERED: NIFEdipine 30 MG SUSTAINED RELEASE TAB PO ONE (15:00)
--- NOTE | 2017-04-28 16:16 | HHI.PR ---
Subjective Remarks More alert today sitting up in chair with signification other at bedside Patient asking when he can go home reports feeling better offers no specific complaints Objective Vitals Vital Signs Date Time Temp Pulse Resp B/P (MAP) Pulse Ox O2 Delivery O2 Flow Rate FiO2 04/28/17 12:00 98.0 59 18 204/84 (124) 97 04/28/17 11:27 65 04/28/17 08:00 97.8 55 18 204/100 (134) 95 04/28/17 04:00 97.3 60 19 175/83 (113) 95 04/27/17 23:30 97.5 70 18 177/83 (114) 96 04/27/17 22:30 97.5 62 18 190/88 (122) 97 04/27/17 22:00 76 04/27/17 20:00 97.8 69 167/84 (111) 93 04/27/17 19:00 73 04/27/17 17:24 97.7 57 20 174/90 (118) 96 04/27/17 17:00 56 Result Diagram: 04/28/1772104/28/17721 Other Results Laboratory Tests Test 04/25/17 19:35 04/25/17 21:50 04/26/17 01:40 04/26/17 07:17 White Blood Count 13.2 TH/MM3 11.1 TH/MM3 Red Blood Count 4.91 MIL/MM3 4.70 MIL/MM3 Hemoglobin 15.0 GM/DL 14.4 GM/DL Hematocrit 45.9 % 44.0 % Mean Corpuscular Volume 93.6 FL 93.7 FL Mean Corpuscular Hemoglobin 30.6 PG 30.7 PG Mean Corpuscular Hemoglobin Concent 32.7 % 32.7 % Red Cell Distribution Width 17.0 % 16.7 % Platelet Count 256 TH/MM3 249 TH/MM3 Mean Platelet Volume 7.7 FL 8.2 FL Neutrophils (%) (Auto) 65.2 % 66.3 % Lymphocytes (%) (Auto) 16.2 % 16.1 % Monocytes (%) (Auto) 15.4 % 13.2 % Eosinophils (%) (Auto) 2.1 % 3.3 % Basophils (%) (Auto) 1.1 % 1.1 % Neutrophils # (Auto) 8.6 TH/MM3 7.4 TH/MM3 Lymphocytes # (Auto) 2.1 TH/MM3 1.8 TH/MM3 Monocytes # (Auto) 2.0 TH/MM3 1.5 TH/MM3 Eosinophils # (Auto) 0.3 TH/MM3 0.4 TH/MM3 Basophils # (Auto) 0.1 TH/MM3 0.1 TH/MM3 CBC Comment DIFF FINAL DIFF FINAL Differential Comment Prothrombin Time 10.7 SEC Prothromb Time International Ratio 1.0 RATIO Activated Partial Thromboplast Time 29.4 SEC Blood Urea Nitrogen 61 MG/DL 61 MG/DL Creatinine 3.59 MG/DL 2.52 MG/DL Random Glucose 83 MG/DL 137 MG/DL Total Protein 7.6 GM/DL 6.5 GM/DL Albumin 3.4 GM/DL 2.8 GM/DL Calcium Level 8.3 MG/DL 8.7 MG/DL Magnesium Level 2.9 MG/DL Alkaline Phosphatase 93 U/L 81 U/L Aspartate Amino Transf (AST/SGOT) 84 U/L 69 U/L Alanine Aminotransferase (ALT/SGPT) 36 U/L 30 U/L Total Bilirubin 0.6 MG/DL 0.7 MG/DL Sodium Level 136 MEQ/L 138 MEQ/L Potassium Level 4.5 MEQ/L 4.3 MEQ/L Chloride Level 103 MEQ/L 107 MEQ/L Carbon Dioxide Level 25.0 MEQ/L 23.0 MEQ/L Anion Gap 8 MEQ/L 8 MEQ/L Estimat Glomerular Filtration Rate 17 ML/MIN 26 ML/MIN Lactic Acid Level 1.3 mmol/L Total Creatine Kinase 2346 U/L 1259 U/L Creatine Kinase MB 70.8 NG/ML 34.8 NG/ML Creatine Kinase MB % 3.0 % 2.8 % Troponin I 6.63 NG/ML 5.95 NG/ML 5.83 NG/ML B-Type Natriuretic Peptide 178 PG/ML Ammonia 54 MCMOL/L 53 MCMOL/L Erythrocyte Sedimentation Rate 24 mm/hr Vitamin B12 Level 933 PG/ML Free Thyroxine 0.87 NG/DL Thyroid Stimulating Hormone 3rd Gen 0.909 uIU/ML Test 04/26/17 09:20 04/26/17 13:51 04/26/17 13:54 04/27/17 06:23 Blood Gas Puncture Site RT RADIAL Blood Gas Patient Temperature 98.6 Blood Gas HCO3 24 mmol/L Blood Gas Base Excess -1.6 mmol/L Blood Gas Oxygen Saturation 85 % Arterial Blood pH 7.31 Arterial Blood Partial Pressure CO2 49 mmHg Arterial Blood Partial Pressure O2 61 mmHg Arterial Blood Oxygen Content 17.9 Vol % Arterial Blood Carboxyhemoglobin 4.4 % Arterial Blood Methemoglobin 1.9 % Blood Gas Hemoglobin 15.1 G/DL Blood Gas Inspired Oxygen 21 % White Blood Count 12.6 TH/MM3 Red Blood Count 4.99 MIL/MM3 Hemoglobin 15.1 GM/DL Hematocrit 47.2 % Mean Corpuscular Volume 94.5 FL Mean Corpuscular Hemoglobin 30.2 PG Mean Corpuscular Hemoglobin Concent 32.0 % Red Cell Distribution Width 16.9 % Platelet Count 260 TH/MM3 Mean Platelet Volume 8.1 FL Neutrophils (%) (Auto) 79.5 % Lymphocytes (%) (Auto) 11.0 % Monocytes (%) (Auto) 7.7 % Eosinophils (%) (Auto) 0.9 % Basophils (%) (Auto) 0.9 % Neutrophils # (Auto) 10.0 TH/MM3 Lymphocytes # (Auto) 1.4 TH/MM3 Monocytes # (Auto) 1.0 TH/MM3 Eosinophils # (Auto) 0.1 TH/MM3 Basophils # (Auto) 0.1 TH/MM3 CBC Comment DIFF FINAL Differential Comment Blood Urea Nitrogen 47 MG/DL Creatinine 1.50 MG/DL Random Glucose 113 MG/DL Calcium Level 8.5 MG/DL Magnesium Level 2.4 MG/DL Sodium Level 139 MEQ/L Potassium Level 5.6 MEQ/L Chloride Level 110 MEQ/L Carbon Dioxide Level 22.5 MEQ/L Anion Gap 7 MEQ/L Estimat Glomerular Filtration Rate 47 ML/MIN Test 04/27/17 06:24 04/27/17 19:45 04/27/17 21:02 04/28/17 07:22 Blood Gas Puncture Site LT RADIAL Blood Gas Patient Temperature 98.6 Blood Gas HCO3 23 mmol/L Blood Gas Base Excess -2.3 mmol/L Blood Gas Oxygen Saturation 92 % Arterial Blood pH 7.33 Arterial Blood Partial Pressure CO2 45 mmHg Arterial Blood Partial Pressure O2 92 mmHg Arterial Blood Oxygen Content 20.3 Vol % Arterial Blood Carboxyhemoglobin 2.5 % Arterial Blood Methemoglobin 1.8 % Blood Gas Hemoglobin 15.6 G/DL Oxygen Delivery Device NASAL CANNULA Blood Gas Liter Flow 2 L/M Urine Color YELLOW Urine Turbidity CLEAR Urine pH 6.0 Urine Specific [place] 1.013 Urine Protein 100 mg/dL Urine Glucose (UA) NEG mg/dL Urine Ketones NEG mg/dL Urine Occult Blood TRACE Urine Nitrite NEG Urine Bilirubin NEG Urine Urobilinogen LESS THAN 2.0 MG/DL Urine Leukocyte Esterase NEG Urine RBC 1 /hpf Urine WBC LESS THAN 1 /hpf Microscopic Urinalysis Comment CULT NOT INDICATED Blood Urea Nitrogen 38 MG/DL 29 MG/DL Creatinine 1.46 MG/DL 1.10 MG/DL Random Glucose 115 MG/DL 104 MG/DL Calcium Level 9.3 MG/DL 8.6 MG/DL Sodium Level 141 MEQ/L 141 MEQ/L Potassium Level 4.1 MEQ/L 3.9 MEQ/L Chloride Level 108 MEQ/L 109 MEQ/L Carbon Dioxide Level 24.1 MEQ/L 24.6 MEQ/L Anion Gap 9 MEQ/L 7 MEQ/L Estimat Glomerular Filtration Rate 48 ML/MIN 67 ML/MIN White Blood Count 14.6 TH/MM3 Red Blood Count 4.81 MIL/MM3 Hemoglobin 14.8 GM/DL Hematocrit 44.6 % Mean Corpuscular Volume 92.8 FL Mean Corpuscular Hemoglobin 30.8 PG Mean Corpuscular Hemoglobin Concent 33.2 % Red Cell Distribution Width 16.5 % Platelet Count 259 TH/MM3 Mean Platelet Volume 8.2 FL Neutrophils (%) (Auto) 81.0 % Lymphocytes (%) (Auto) 10.3 % Monocytes (%) (Auto) 7.6 % Eosinophils (%) (Auto) 0.4 % Basophils (%) (Auto) 0.7 % Neutrophils # (Auto) 11.8 TH/MM3 Lymphocytes # (Auto) 1.5 TH/MM3 Monocytes # (Auto) 1.1 TH/MM3 Eosinophils # (Auto) 0.1 TH/MM3 Basophils # (Auto) 0.1 TH/MM3 CBC Comment DIFF FINAL Differential Comment Magnesium Level 1.7 MG/DL Triglycerides Level 164 MG/DL Cholesterol Level 103 MG/DL LDL Cholesterol 44 MG/DL HDL Cholesterol 26.3 MG/DL Cholesterol/HDL Ratio 3.91 RATIO Imaging Last [address] 04/25/171903 Signed Impressions: Service Date/Time: April 20:43 - CONCLUSION: No acute intracranial abnormality. Mild sinus disease. Cisco Kimball MD Chest X-Ray 04/25/171903 Signed Impressions: Service Date/Time: April 20:16 - CONCLUSION: No evidence of acute cardiopulmonary disease. Cisco Kimball MD Objective Remarks GENERAL: This is a well-nourished, well-developed patient SKIN: chronic venous stasis dermatitis BLE with few skin avulsions noted. HEAD: Atraumatic. Normocephalic. No temporal or scalp tenderness. CARDIOVASCULAR: Regular rate and rhythm without murmurs, gallops, or rubs. RESPIRATORY: Clear to auscultation. Breath sounds equal bilaterally. No wheezes , rales, or rhonchi. GASTROINTESTINAL: Abdomen soft, non-tender, nondistended. No guarding. hypoactive BS MUSCULOSKELETAL: 1+ edema in distal BLE with venous stasis. No calf tenderness. NEUROLOGICAL: Awake and alert. No focal deficits noted. 4 out of 5 muscle strength in all muscle groups. Normal speech. A/P Problem List: (1) Bacteremia ICD Codes: R78.81 - Bacteremia Plan: blood culture positive for Gram positive Cocci in 1 bottle positive for staph Sp Coagulase Negative in 1 bottle continue vancomycin with pharmacy consult add Zosyn UA reviewed no culture indicated repeat CBC in AM discussed with patient and significant other at bedside (2) Acute kidney injury superimposed on CKD ICD Codes: N17.9 - Acute kidney failure, unspecified; N18.9 - Chronic kidney disease, unspecified Status: Acute Plan: creatinine 3.59 -> 2.52 -> 1.5 -> 1.10 continue IV hydration. Recheck BMP in AM. Monitor UOP. Baseline Cr around 1.2 (3) NSTEMI (non-ST elevated myocardial infarction) ICD Codes: I21.4 - Non-ST elevation (NSTEMI) myocardial infarction Status: Acute Plan: NSTEMI- unknown etiology consult cardiology, Appreciated cardiology assistance recommending wait for renal recovery then likely [facility] continuous telemetry Continue BB with hold parameters as patient is bradycardic (4) Tremor of hands and face ICD Codes: R25.1 - Tremor, unspecified Status: Acute Plan: ? etiology. Possibly a/w metabolic disturbance. No acute finding on CT. No tremor noted on exam Consult neurology, appreciate recommendations request US carotid arteries PT eval and treat Prior stroke noted. MRI reviewed and reveals: No bleed, infarct or other intracranial abnormality, mild chronic white matter changes (5) Hypertension ICD Codes: I10 - Essential (primary) hypertension Status: Chronic Plan: metoprolol 25 mg BID with hold parameters increase Procardia XL to 60 mg daily resume home enalapril 20 mg daily DC IV fluids (6) Hyperlipidemia ICD Codes: E78.5 - Hyperlipidemia, unspecified Status: Chronic Plan: continue rx (7) Hyperkalemia ICD Codes: E87.5 - Hyperkalemia Plan: improved after Kayexalate continuous lunchroom monitor BMP Assessment and Plan Patient examined. Assessment and plan formulated with Maeve Owens PA-C. I agree with the above. Problem Qualifiers (1) Hypertension: Qualified Codes: I10 - Essential (primary) hypertension (2) Hyperlipidemia: Qualified Codes: E78.00 - Pure hypercholesterolemia, unspecified Maeve Owens Apr 28, 2017 16:16 Vicente Arcos DO Apr 29, 2017 15:30
[2017-04-28] MEDS: PIPERACIL-TAZO 3.375 GM PREMIX 50 ML IV SCH ×2 (17:13→20:24)
[2017-04-28] MEDS: ATORVASTATIN 40 MG TAB PO SCH (20:23)
[2017-04-29] VITALS (8 sets, daily range): BP systolic 119–170; BP diastolic 62–96; PULSE 54–80; RESP 16–19; TEMP 97.3–98.2; O2SAT 94–97
[2017-04-29] MEDS: MORPHINE SULFATE 4 MG/ML INJ IV PUSH PRN ×4 (00:43→16:03)
[2017-04-29] MEDS: CYANOCOBALAMIN 100 MCG TAB PO SCH (01:20)
[2017-04-29] MEDS: PIPERACIL-TAZO 3.375 GM PREMIX 50 ML IV SCH ×4 (04:21→22:40)
--- NOTE | 2017-04-29 09:04 | HHI.PR ---
Subjective Remarks on edge bed. trying to eat breakfast tried to call his ..no answer. Objective Vitals mild confusion heart reg lung cta abd s/nt ext no edema left lower ext bandaged. Vital Signs Date Time Temp Pulse Resp B/P (MAP) Pulse Ox O2 Delivery O2 Flow Rate FiO2 04/29/17 04:00 95 Room Air 04/29/17 04:00 97.6 54 18 160/84 (109) 95 04/29/17 01:14 18 04/29/17 00:00 94 Room Air 04/29/17 00:00 98.2 54 18 166/90 (115) 94 04/28/17 20:04 60 04/28/17 20:00 98.2 71 18 162/92 (115) 95 162/92 (115) 04/28/17 16:00 97.2 54 19 185/83 (117) 94 04/28/17 12:00 98.0 59 18 204/84 (124) 97 04/28/17 11:27 65 Result Diagram: 04/28/1722 04/28/17721 Imaging Last [address] 04/25/171903 Signed Impressions: Service Date/Time: April 20:43 - CONCLUSION: No acute intracranial abnormality. Mild sinus disease. Cisco Kimball MD Chest X-Ray 04/25/171903 Signed Impressions: Service Date/Time: April 20:16 - CONCLUSION: No evidence of acute cardiopulmonary disease. Cisco Kimball MD A/P Problem List: (1) Acute kidney injury superimposed on CKD ICD Codes: N17.9 - Acute kidney failure, unspecified; N18.9 - Chronic kidney disease, unspecified Status: Acute Plan: Pt present with kadi. probably prerenal/dehydration creatinine 3.59 -> 2.52 -> 1.5 -> 1.10 will need snf discuss with family. (2) Bacteremia ICD Codes: R78.81 - Bacteremia Plan: blood cx 1 bottle gpc, 1 bottle coag neg staph. elevated wbc cont abx coverage recheck survellience bl cx. ?contaminants (3) NSTEMI (non-ST elevated myocardial infarction) ICD Codes: I21.4 - Non-ST elevation (NSTEMI) myocardial infarction Status: Acute Plan: NSTEMI vs noncardiac etiology such as rhabdo cardiology following ?ischemic w/up being decided by cardiology. (4) Hypertension ICD Codes: I10 - Essential (primary) hypertension Status: Chronic Plan: cont procardia/enalapril monitor and adjust as needed. 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
[2017-04-29] MEDS: ENALAPRIL MALEATE 10 MG TAB PO SCH (10:24)
[2017-04-29] MEDS: LORATADINE 10 MG TAB PO SCH (10:25)
[2017-04-29] MEDS: ASPIRIN 325 MG TAB PO SCH (10:25)
[2017-04-29] MEDS: NIFEdipine 60 MG SUSTAINED RELEASE TAB PO SCH (10:25)
[2017-04-29] MEDS: METOPROLOL TARTRATE 25 MG TAB PO SCH ×2 (10:25→21:32)
[2017-04-29] MEDS: FAMOTIDINE 20 MG TAB PO SCH ×2 (10:25→21:33)
[2017-04-29 10:41] LABS: AUTOMATED NEUTROPHIL # 10.2 TH/MM3 (1.8-7.7); BASOPHIL # 0.2 TH/MM3 (0-0.2); BASOPHIL % 1.3 % (0.0-2.0); EOSINOPHIL # 0.1 TH/MM3 (0-0.4); EOSINOPHIL % 0.7 % (0.0-4.0); HEMATOCRIT 51.1 % (39.0-51.0); HEMO FLAGS DIFF FINAL; LYMPH % 9.3 % (9.0-44.0); LYMPHOCYTE # 1.2 TH/MM3 (1.0-4.8); MEAN CELL VOLUME 93.9 FL (80.0-100.0); MEAN CORPUSCULAR HEMOGLOBIN 30.9 PG (27.0-34.0); MONO % 7.4 % (0.0-8.0); NEUT % 81.3 % (16.0-70.0); PLATELET COUNT 282 TH/MM3 (150-450); RED BLOOD COUNT 5.44 MIL/MM3 (4.50-5.90); RED CELL DISTRIBUTION WIDTH 16.5 % (11.6-17.2); WHITE BLOOD COUNT 12.5 TH/MM3 (4.0-11.0)
[2017-04-29 10:58] LABS: BICARBONATE 25.8 MEQ/L (21.0-32.0); POTASSIUM 3.5 MEQ/L (3.5-5.1)
--- NOTE | 2017-04-29 15:36 | PD.CARD.PN ---
Subjective Subjective Remarks no events Objective Medications Active Medications Enalapril Maleate (Vasotec) 20 mg DAILY PO Last administered on 04/29/17 10:24 ; Admin Dose 20 MG; Start 04/29/17 at 09:00 Miscellaneous Information SPECIFIC LAB TO BE DRAWN:VANCOMY... ONCE ONCE .XX Last administered on 04/29/17 15:24; Admin Dose 1; Start 04/29/17 at 15:45; Stop 04/29/17 at 15:46 Nifedipine (Procardia Xl) 60 mg DAILY PO Last administered on 04/29/17 10:25; Admin Dose 60 MG; Start 04/29/17 at 09:00 Piperacillin Sod/ Tazobactam Sod 50 ml @ 100 mls/hr Q6H IV Last administered on 04/29/17 15:05; Admin Dose 100 MLS/HR; Start 04/28/17 at 16:00 Vital Signs / I&O Vital Signs Date Time Temp Pulse Resp B/P (MAP) Pulse Ox O2 Delivery O2 Flow Rate FiO2 04/29/17 12:09 97.3 60 18 164/96 (118) 97 04/29/17 10:30 97 Room Air 04/29/17 08:18 80 04/29/17 08:09 97.9 60 19 170/74 (106) 97 04/29/17 04:00 95 Room Air 04/29/17 04:00 97.6 54 18 160/84 (109) 95 04/29/17 01:14 18 04/29/17 00:00 94 Room Air 04/29/17 00:00 98.2 54 18 166/90 (115) 94 04/28/17 20:04 60 04/28/17 20:00 98.2 71 18 162/92 (115) 95 162/92 (115) 04/28/17 16:00 97.2 54 19 185/83 (117) 94 I/O 04/28/17 04/28/17 04/28/17 04/29/17 04/29/17 04/29/17 07:00 15:00 23:00 07:00 15:00 23:00 Intake Total 650 ml 2659 ml 60 ml 50 ml Output Total 525 ml 810 ml 250 ml Balance 125 ml 2659 ml -750 ml -200 ml Intake Oral 240 ml 60 ml IV Total 650 ml 2419 ml 50 ml Output Urine Total 525 ml 810 ml 250 ml # Voids 2 # Bowel Movements 1 Physical Exam GENERAL: SKIN: Warm and dry. HEAD: Normocephalic. EYES: No scleral icterus. No injection or drainage. NECK: Supple, trachea midline. No JVD or lymphadenopathy. CARDIOVASCULAR: Regular rate and rhythm without murmurs, gallops, or rubs. RESPIRATORY: Breath sounds equal bilaterally. No accessory muscle use. GASTROINTESTINAL: Abdomen soft, non-tender, nondistended. MUSCULOSKELETAL: No cyanosis, or edema. BACK: Nontender without obvious deformity. No CVA tenderness. Laboratory Laboratory Tests Test 04/29/17 09:51 White Blood Count 12.5 TH/MM3 Red Blood Count 5.44 MIL/MM3 Hemoglobin 16.8 GM/DL Hematocrit 51.1 % Mean Corpuscular Volume 93.9 FL Mean Corpuscular Hemoglobin 30.9 PG Mean Corpuscular Hemoglobin Concent 33.0 % Red Cell Distribution Width 16.5 % Platelet Count 282 TH/MM3 Mean Platelet Volume 8.3 FL Neutrophils (%) (Auto) 81.3 % Lymphocytes (%) (Auto) 9.3 % Monocytes (%) (Auto) 7.4 % Eosinophils (%) (Auto) 0.7 % Basophils (%) (Auto) 1.3 % Neutrophils # (Auto) 10.2 TH/MM3 Lymphocytes # (Auto) 1.2 TH/MM3 Monocytes # (Auto) 0.9 TH/MM3 Eosinophils # (Auto) 0.1 TH/MM3 Basophils # (Auto) 0.2 TH/MM3 CBC Comment DIFF FINAL Differential Comment Blood Urea Nitrogen 22 MG/DL Creatinine 1.21 MG/DL Random Glucose 143 MG/DL Calcium Level 9.2 MG/DL Sodium Level 139 MEQ/L Potassium Level 3.5 MEQ/L Chloride Level 104 MEQ/L Carbon Dioxide Level 25.8 MEQ/L Anion Gap 9 MEQ/L Estimat Glomerular Filtration Rate 60 ML/MIN Assessment and Plan Problem List: (1) Troponin level elevated ICD Codes: R74.8 - Abnormal levels of other serum enzymes Status: Acute (2) Hypertension ICD Codes: I10 - Essential (primary) hypertension Status: Chronic (3) Hyperlipidemia ICD Codes: E78.5 - Hyperlipidemia, unspecified Status: Chronic Assessment and Plan NSTEMI - unclear etiology. lexiscan in am. npo p mn cont med therapy Problem Qualifiers (1) Hypertension: Qualified Codes: I10 - Essential (primary) hypertension (2) Hyperlipidemia: Qualified Codes: E78.00 - Pure hypercholesterolemia, unspecified Minor,Marvin Langford MD Apr 29, 2017 15:36
--- NOTE | 2017-04-29 15:41 | PD.WCN.NOT ---
Wound Consult Description: Consult for bilateral lower extremities per JAIR Owens Communicated with: JAIR Owens Patient Recommendation: Left anterior lower leg skin tear: Cleanse wound with NS and gauze Apply Single Layer Xeroform and dry cover daily Do not apply tape to skin Additional Information: Patient seen on [address] [facility] for lower extremity wounds. Left lower anterior leg wound is presenting as a skin tear measuring 12cm x 4.8cm x 0.1cm of partial thickness skin loss with 100% red non granulating tissue with jagged wound margins and no active drainage noted. Left medial ankle skin tear was dry and noted with red tissue. Wounds were cleansed with NS and gauze. Single layer Xeroform was applied over wound beds and covered with 4x4 gauze and secured with rolled gauze and tape. No tape was applied to skin. Right lower extremity wounds are dry and scabbed and were left open to air. Bilateral lower extremities were noted with hemosideran staining in the gaiter areas consistent with PVD. Danielle Sanchez [facility] Apr 29, 2017 15:41
[2017-04-29] MEDS ORDERED: PHARMACY ORDERED LAB ONE (15:45)
[2017-04-29] MEDS: VANCOMYCIN 1,000 MG/NS 250 ML IV SCH ×2 (15:56)
[2017-04-29 16:12] LABS: VANCOMYCIN TROUGH 11.8 MCG/ML (5.0-10.0)
[2017-04-29] MEDS: ACETAMINOPHEN/HYDROcodone 325 MG/5 MG TAB PO PRN (18:04)
[2017-04-29] MEDS: MORPHINE SULFATE 15 MG CONTROLLED RELEASE TAB PO SCH (21:32)
[2017-04-29] MEDS: ATORVASTATIN 40 MG TAB PO SCH (21:32)
[2017-04-30] VITALS (10 sets, daily range): BP systolic 147–201; BP diastolic 70–90; PULSE 53–78; RESP 16–20; TEMP 97.3–98.7; O2SAT 95–98
[2017-04-30] MEDS: PIPERACIL-TAZO 3.375 GM PREMIX 50 ML IV SCH (05:21)
--- NOTE | 2017-04-30 08:09 | HHI.PR ---
Subjective Remarks no distress. comfortable. Objective Vitals heart reg lung cta abd s/nt ext left rider denuded skin chronic skin changes Vital Signs Date Time Temp Pulse Resp B/P (MAP) Pulse Ox O2 Delivery O2 Flow Rate FiO2 04/30/17 04:00 Room Air 04/30/17 04:00 97.8 56 18 148/70 (96) 97 04/30/17 01:00 Room Air 04/30/17 01:00 98.7 53 16 147/81 (103) 95 04/29/17 22:30 Room Air 04/29/17 22:30 97.7 67 16 168/85 (112) 97 04/29/17 20:18 73 04/29/17 16:09 97.7 74 18 119/62 (81) 97 04/29/17 16:00 97 Room Air 04/29/17 12:09 97.3 60 18 164/96 (118) 97 04/29/17 10:30 97 Room Air 04/29/17 08:18 80 04/29/17 08:09 97.9 60 19 170/74 (106) 97 Result Diagram: 04/29/17 0951 04/29/17 0951 Imaging Last [address] 04/25/171903 Signed Impressions: Service Date/Time: April 20:43 - CONCLUSION: No acute intracranial abnormality. Mild sinus disease. Cisco Kimball MD Chest X-Ray 04/25/171903 Signed Impressions: Service Date/Time: April 20:16 - CONCLUSION: No evidence of acute cardiopulmonary disease. Cisco Kimball MD A/P Problem List: (1) Acute kidney injury superimposed on CKD ICD Codes: N17.9 - Acute kidney failure, unspecified; N18.9 - Chronic kidney disease, unspecified Status: Acute Plan: Pt present to [facility] after a fall, tremors, confusion Noted to have left rider skin tears from the fall chronic leg skin changes. carries dx of HSP. Pt present with kadi. probably prerenal/dehydration creatinine 3.59 -> 2.52 -> 1.5 -> 1.10 will need snf discussed with family. (2) Bacteremia ICD Codes: R78.81 - Bacteremia Plan: blood cx 1 bottle gpc, 1 bottle coag neg staph. elevated wbc cont abx coverage recheck survellience bl cx. ?contaminants (3) NSTEMI (non-ST elevated myocardial infarction) ICD Codes: I21.4 - Non-ST elevation (NSTEMI) myocardial infarction Status: Acute Plan: NSTEMI vs noncardiac etiology such as rhabdo cardiology following lexiscan pending for today. (4) Hypertension ICD Codes: I10 - Essential (primary) hypertension Status: Chronic Plan: cont procardia/enalapril monitor and adjust as needed. 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
[2017-04-30] MEDS: NIFEdipine 60 MG SUSTAINED RELEASE TAB PO SCH (09:26)
[2017-04-30] MEDS: LORATADINE 10 MG TAB PO SCH (09:26)
[2017-04-30] MEDS: MORPHINE SULFATE 15 MG CONTROLLED RELEASE TAB PO SCH ×2 (09:26→20:24)
[2017-04-30] MEDS: ASPIRIN 325 MG TAB PO SCH (09:26)
[2017-04-30] MEDS: METOPROLOL TARTRATE 25 MG TAB PO SCH ×2 (09:26→20:22)
[2017-04-30] MEDS: ENALAPRIL MALEATE 10 MG TAB PO SCH (09:26)
[2017-04-30] MEDS: FAMOTIDINE 20 MG TAB PO SCH ×2 (09:26→20:22)
[2017-04-30] MEDS: ACETAMINOPHEN/HYDROcodone 325 MG/5 MG TAB PO PRN ×2 (09:27→13:45)
[2017-04-30] MEDS: CYANOCOBALAMIN 100 MCG TAB PO SCH (09:47)
[2017-04-30] MEDS: VANCOMYCIN 1,000 MG/NS 250 ML IV SCH ×2 (09:48)
[2017-04-30 10:40] LABS: AUTOMATED NEUTROPHIL # 10.3 TH/MM3 (1.8-7.7); BASOPHIL # 0.2 TH/MM3 (0-0.2); BASOPHIL % 1.3 % (0.0-2.0); EOSINOPHIL # 0.1 TH/MM3 (0-0.4); EOSINOPHIL % 0.8 % (0.0-4.0); HEMATOCRIT 50.4 % (39.0-51.0); HEMO FLAGS DIFF FINAL; LYMPHOCYTE # 1.3 TH/MM3 (1.0-4.8); MEAN CELL VOLUME 92.1 FL (80.0-100.0); MEAN CORPUSCULAR HEMOGLOBIN 30.3 PG (27.0-34.0); MEAN CORPUSCULAR HGB CONC 32.9 % (32.0-36.0); MONO % 8.1 % (0.0-8.0); NEUT % 79.8 % (16.0-70.0); PLATELET COUNT 306 TH/MM3 (150-450); RED BLOOD COUNT 5.48 MIL/MM3 (4.50-5.90); RED CELL DISTRIBUTION WIDTH 16.9 % (11.6-17.2); WHITE BLOOD COUNT 12.9 TH/MM3 (4.0-11.0)
[2017-04-30] MEDS ORDERED: REGADENOSON INJ 0.4 MG/5 ML SYR ONE (10:56)
--- NOTE | 2017-04-30 13:01 | RADRPT ---
EXAM DATE/TIME: 04/30/2017 10:22 [facility] COMPARISON: No previous studies available for comparison. INDICATIONS : Chest pain for 1 day. Angina. DOSE: 26.1 mCi Tc99m Myoview at stress. 8.2 mCi Tc99m Myoview at rest. 0.4 mg Lexiscan STRESS SYMPTOMS: Dyspnea. EJECTION FRACTION: 57% MEDICAL HISTORY : Hepatitis C. Hypertension. Renal disease, end stage. Smoker. SURGICAL HISTORY : Tonsillectomy. ENCOUNTER: Initial ACUITY: 1 day PAIN SCALE: 1/10 LOCATION: Bilateral chest TECHNIQUE: The patient underwent pharmacologic stress with infusion of prescribed dose. Continuous ECG tracing was monitored during stress. Gated SPECT imaging was performed after stress and conventional SPECT i maging was performed at rest. The examination was performed on a SPECT/CT scanner, both attenuation and non-corrected datasets were reviewed. FINDINGS: DISTRIBUTION: The maximum perfused segment at stress is in the septal wall. PERFUSION STUDY: The pattern of perfusion at stress is within normal limits. GATED STUDY: There is intact wall motion and thickening without hypokinetic or dyskinetic segments. CONCLUSION: 1. No significant reversible perfusion abnormality to suggest stress induced myocardial ischemia is i dentified. 2. Ejection fraction estimated at 57%. RISK CATEGORY: Low (<1% Annual Mortality Rate) Juvenal Navarrete MD on April 30, 2017 at 12:58 Board Certified Radiologist. This report was verified electronically.
[2017-04-30] MEDS: cloNIDine HCL 0.1 MG TAB PO PRN (15:23)
[2017-04-30] MEDS ORDERED: CLON0.1T PO (17:04)
[2017-04-30] MEDS: ATORVASTATIN 40 MG TAB PO SCH (20:23)
[2017-05-01] VITALS (7 sets, daily range): BP systolic 164–197; BP diastolic 84–92; PULSE 55–61; RESP 16–18; TEMP 97.3–98.2; O2SAT 94–98
[2017-05-01] MEDS: ACETAMINOPHEN/HYDROcodone 325 MG/5 MG TAB PO PRN (02:18)
[2017-05-01] MEDS ORDERED: PHARMACY ORDERED LAB ONE (03:45)
[2017-05-01] MEDS: VANCOMYCIN 1,000 MG/NS 250 ML IV SCH ×2 (04:14)
[2017-05-01] MEDS: METOPROLOL TARTRATE 25 MG TAB PO SCH (08:20)
[2017-05-01] MEDS: NIFEdipine 60 MG SUSTAINED RELEASE TAB PO SCH (08:20)
[2017-05-01] MEDS: cloNIDine HCL 0.1 MG TAB PO PRN (08:20)
[2017-05-01] MEDS: ASPIRIN 325 MG TAB PO SCH (08:20)
[2017-05-01] MEDS: FAMOTIDINE 20 MG TAB PO SCH (08:20)
[2017-05-01] MEDS: MORPHINE SULFATE 15 MG CONTROLLED RELEASE TAB PO SCH (08:20)
[2017-05-01] MEDS: ENALAPRIL MALEATE 10 MG TAB PO SCH (08:20)
[2017-05-01] MEDS: LORATADINE 10 MG TAB PO SCH (08:20)
[2017-05-01] MEDS: CYANOCOBALAMIN 100 MCG TAB PO SCH (08:28)
[2017-05-01] MEDS ORDERED: METO25TA3 PO (08:48)
[2017-05-01] MEDS ORDERED: MS C15TA2 PO (08:51)
[2017-05-01] MEDS ORDERED: METO50TA PO (08:51)
[2017-05-01] MEDS ORDERED: LISI-515 PO (08:51)
[2017-05-01] MEDS ORDERED: LEVA500T20 PO (08:52)
[2017-05-01] MEDS ORDERED: NIFE1TAB85 PO (08:52)
--- NOTE | 2017-05-01 08:53 | HHI.DCPOC ---
Discharge Care Plan Diagnosis: (1) Acute kidney injury superimposed on CKD (2) NSTEMI (non-ST elevated myocardial infarction) (3) Bacteremia (4) Hypertension Goals to Promote Your Health * To prevent worsening of your condition and complications * To maintain your health at the optimal level Directions to Meet Your Goals Take your medications as prescribed Follow your dietary instruction Follow activity as directed Keep your appointments as scheduled Take your immunizations and boosters as scheduled If your symptoms worsen call your PCP, if no PCP go to Urgent Care Center or Emergency Room Smoking is Dangerous to Your Health. Avoid second hand smoke Call the 24-hour hour crisis hotline for domestic abuse at Dario Greenberg MD May 01, 2017 08:53
--- NOTE | 2017-05-01 08:56 | HHI.FF ---
Face to Face Verification Diagnosis: (1) Acute kidney injury superimposed on CKD (2) Bacteremia (3) Hypertension Physical Therapy Order: Evaluate and Treat, Improve ambulation Home Health Nursing Order: Medical education Signs/symptoms of disease process Medication education-adverse effect Wound care and dressing changes Nursing assessment with vital signs Instructions: monitor bp with new bp med changes. notify Dr Foster pcp with any concerns please. Left lower anterior leg wound is presenting as a skin tear measuring 12cm x 4.8cm x 0.1cm of partial thickness skin loss with 100% red non granulating tissue with jagged wound margins and no active drainage noted. Left medial ankle skin tear was dry and noted with red tissue. Wounds were cleansed with NS and gauze. Single layer Xeroform was applied over wound beds and covered with 4x4 gauze and secured with rolled gauze and tape. No tape was applied to skin. Right lower extremity wounds are dry and scabbed and were left open to air. I have seen patient Darell Walker on 05/01/17. My clinical findings support the need for the requested home health care services because: Deconditioned w/ increased weakness I certify that my clinical findings support that this patient is homebound because: Need for psychosocial assistance Dario Greenberg MD May 01, 2017 08:56
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
[2017-05-01] MEDS ORDERED: WALKER WHEELS/F1 MIS (11:17)
[2017-05-01] MEDS ORDERED: VANCOMYCIN INJ 1,250 MG in SODIUM CHLOR 0.9% 250 ML INJ 250 ML IV SCH (22:00)
[2017-05-04] MEDS ORDERED: PHARMACY ORDERED LAB ONE (03:45)
== END 2017-05-01 11:38 | disposition home health service (06) | DRG 682 ==
LOC: NEPC 18:25 → UNDOADMOB 22:33 → NEDA 22:33 → HCIS 04-26 01:41 → N04A 04-27 22:21
PROVIDERS: ADMIT Hospitalist; ATTEND Hospitalist
DX: N17.9 Acute kidney failure, unspecified (principal); I21.4 Non-ST elevation (NSTEMI) myocardial infarction; G93.41 Metabolic encephalopathy; L97.909 Non-pressure chronic ulcer of unspecified part of unspecified lower leg with unspecified severity; G62.9 Polyneuropathy, unspecified; S81.812A Laceration without foreign body, left lower leg, initial encounter; I12.9 Hypertensive chronic kidney disease with stage 1 through stage 4 chronic kidney disease, or unspecified chronic kidney disease; E78.00 Pure hypercholesterolemia, unspecified; N18.3 Chronic kidney disease, stage 3 (moderate); R47.81 Slurred speech; E78.1 Pure hyperglyceridemia; B19.20 Unspecified viral hepatitis C without hepatic coma; K21.9 Gastro-esophageal reflux disease without esophagitis; M54.9 Dorsalgia, unspecified; G89.29 Other chronic pain; F17.200 Nicotine dependence, unspecified, uncomplicated; Y93.9 Activity, unspecified; Y92.9 Unspecified place or not applicable; W19.XXXA Unspecified fall, initial encounter; I70.0 Atherosclerosis of aorta; Z86.73 Personal history of transient ischemic attack (TIA), and cerebral infarction without residual deficits; M81.0 Age-related osteoporosis without current pathological fracture; N40.0 Benign prostatic hyperplasia without lower urinary tract symptoms; I83.009 Varicose veins of unspecified lower extremity with ulcer of unspecified site; R25.1 Tremor, unspecified; Z82.3 Family history of stroke; R00.1 Bradycardia, unspecified; E87.5 Hyperkalemia; R11.2 Nausea with vomiting, unspecified; E86.0 Dehydration; T79.6XXA Traumatic ischemia of muscle, initial encounter
CPT/HCPCS: 36600; 70450; 70547; 70551; 71010; 76937; 78452; 80048; 80053; 80061; 80202; 81001; 82140; 82550; 82552; 82565; 82607; 82805; 83605; 83735; 83880; 84425; 84439; 84443; 84484; 85025; 85610; 85652; 85730; 86592; 87040; 87077; 87186; 87205; 93005; 93017; 93306; 93880; 95819; 96360; A9502; J2270; J2405; J2543; J2785; J3370; J7030; J7050